=== PATIENT | male | born 1960 | race African-American/Black ===

== ENCOUNTER 2017-04-21 00:08 | Emergency (ER) | payer OTHER ==
[2017-04-21 00:18] LABS: Glucose,Whole Blood 81 mg/dL (75-99)
[2017-04-21] MEDS ORDERED: SODIUM CHLORIDE 0.9% 1,000 ML IV STA (01:05)
--- NOTE | 2017-04-21 01:09 | ED ---
General Adult HPI - General Chief complaint: Syncope Stated complaint: syncope Time Seen by Provider: 04/21/17 00:10 Source: patient, RN notes reviewed Mode of arrival: EMS - History of Present Illness Initial comments: This is a 56-year-old male who presents emergency department because he passed out. Patient states he was standing watching some people dancing at the festivities this evening. Patient states he started getting lightheaded and then he passed out states he was only out for a couple of seconds. Patient denied any headache patient denied any numbness or weakness. Patient denied any chest pain difficulty breathing or shortness of breath. Patient denied any abdominal pain patient denies any nausea or vomiting. Patient states currently he still feels a little weak but he is not having any pain and is in no distress. Patient denies having any heart condition patient denies any diabetes or high blood pressure. Patient states she does not have a family doctor. Patient denied any drinking today patient denies any drug use tonight. - Related Data Home Medications Medication Instructions Recorded Confirmed Cyclobenzaprine [Flexeril] 5 mg PO Q8HR 04/21/17 04/21/17 HYDROcodone/APAP 5-325MG [[place] 5] 5 mg PO Q8HR 04/21/17 04/21/17 Allergies Allergy/AdvReac Type Severity Reaction Status Date / Time Fish Containing Products Allergy Unknown Verified 04/21/17 00:18 [Fish] Review of Systems ROS Statement: Those systems with pertinent positive or pertinent negative responses have been documented in the HPI. ROS Other: All systems not noted in ROS Statement are negative. Past Medical History Additional Past Medical History / Comment(s): back pain History of Any Multi-Drug Resistant Organisms: None Reported Additional Past Surgical History / Comment(s): rigth shoulder surgery Past Psychological History: No Psychological Hx Reported Smoking Status: Current every day smoker Past Alcohol Use History: Occasional Past Drug Use History: Marijuana General Exam - General Exam Comments Initial Comments: GENERAL: Patient is well-developed and well-nourished. Patient is nontoxic and well- hydrated and is in no acute distress. ENT: Neck is soft and supple. No significant lymphadenopathy is noted. Oropharynx is clear. Moist mucous membranes. Neck has full range of motion without eliciting any pain. EYES The sclera were anicteric and conjunctiva were pink and moist. Extraocular movements were intact and pupils were equal round and reactive to light. Eyelids were unremarkable. PULMONARY: Unlabored respirations. Good breath sounds bilaterally. No audible rales rhonchi or wheezing was noted. CARDIOVASCULAR: There is a regular rate and rhythm without any murmurs gallops or rubs. ABDOMEN: Soft and nontender with normal bowel sounds. No palpable organomegaly was noted. There is no palpable pulsatile mass. SKIN: Skin is clear with no lesions or rashes and otherwise unremarkable. NEUROLOGIC: Patient is alert and oriented x3. Cranial nerves II through XII are grossly intact. Motor and sensory are also intact. Normal speech, volume and content. Symmetrical smile. MUSCULOSKELETAL: Normal extremities with adequate strength and full range of motion. No lower extremity swelling or edema. No calf tenderness. LYMPHATICS: No significant lymphadenopathy is noted PSYCHIATRIC: Normal psychiatric evaluation. Normal interpersonal interactions appears functionally intact in deals appropriately with others. No signs of depression. No signs of anxiety. Course Vital Signs 04/21/17 04/21/17 04/21/17 00:09 00:45 03:36 Temperature 97.0 F L Pulse Rate 68 72 86 Respiratory 18 16 14 Rate Blood Pressure 104/58 104/58 130/72 O2 Sat by Pulse 58 L 98 100 Oximetry Medical Decision Making - Medical Decision Making EKG shows a normal sinus rhythm at 67 bpm DE interval is on a 60 QRS is 66 QT interval 394 QTC is 416. Patient's EKG shows no ST segment elevation or depression or T wave normalities are noted. CT of the chest shows no PE. I suggest the patient stay in the hospital because he had a syncopal episode however he refused stating he wanted to go home. - Lab Data Result diagrams: 04/21/17 00:31 04/21/17 00:31 Lab Results 04/21/17 04/21/17 04/21/17 Range/Units 00:16 00:31 00:31 WBC 7.7 (3.8-10.6) k/uL RBC 4.28 L (4.30-5.90) m/uL Hgb 13.9 (13.0-17.5) gm/dL Hct 41.1 (39.0-53.0) % MCV 95.8 (80.0-100.0) fL MCH 32.5 (25.0-35.0) pg MCHC 33.9 (31.0-37.0) g/dL RDW 14.0 (11.5-15.5) % Plt Count 168 (150-450) k/uL Neutrophils % 48 % Lymphocytes % 40 % Monocytes % 6 % Eosinophils % 4 % Basophils % 1 % Neutrophils # 3.7 (1.3-7.7) k/uL Lymphocytes # 3.1 (1.0-4.8) k/uL Monocytes # 0.5 (0-1.0) k/uL Eosinophils # 0.3 (0-0.7) k/uL Basophils # 0.1 (0-0.2) k/uL PT (9.0-12.0) sec INR (<1.2) APTT (22.0-30.0) sec D-Dimer (<0.60) mg/L FEU Sodium (137-145) mmol/L Potassium (3.5-5.1) mmol/L Chloride (98-107) mmol/L Carbon Dioxide (22-30) mmol/L Anion Gap mmol/L BUN (9-20) mg/dL Creatinine (0.66-1.25) mg/dL Est GFR (MDRD) Af Amer (>60 ml/min/1.73 sqM) Est GFR (MDRD) Non-Af (>60 ml/min/1.73 sqM) Glucose (74-99) mg/dL POC Glucose (mg/dL) 81 (75-99) mg/dL POC Glu [employer] ID [place] Billy Calcium (8.4-10.2) mg/dL Magnesium (1.6-2.3) mg/dL Total Bilirubin (0.2-1.3) mg/dL AST (17-59) U/L ALT (21-72) U/L Alkaline Phosphatase (38-126) U/L Total Creatine Kinase 248 H (55-170) U/L CK-MB (CK-2) 1.8 (0.0-2.4) ng/mL CK-MB (CK-2) Rel Index 0.7 Troponin I <0.012 (0.000-0.034) ng/mL Total Protein (6.3-8.2) g/dL Albumin (3.5-5.0) g/dL 04/21/17 04/21/17 Range/Units 00:31 00:31 WBC (3.8-10.6) k/uL RBC (4.30-5.90) m/uL Hgb (13.0-17.5) gm/dL Hct (39.0-53.0) % MCV (80.0-100.0) fL MCH (25.0-35.0) pg MCHC (31.0-37.0) g/dL RDW (11.5-15.5) % Plt Count (150-450) k/uL Neutrophils % % Lymphocytes % % Monocytes % % Eosinophils % % Basophils % % Neutrophils # (1.3-7.7) k/uL Lymphocytes # (1.0-4.8) k/uL Monocytes # (0-1.0) k/uL Eosinophils # (0-0.7) k/uL Basophils # (0-0.2) k/uL PT 10.2 (9.0-12.0) sec INR 1.0 (<1.2) APTT 19.1 L (22.0-30.0) sec D-Dimer 4.21 H (<0.60) mg/L FEU Sodium 145 (137-145) mmol/L Potassium 4.0 (3.5-5.1) mmol/L Chloride 108 H (98-107) mmol/L Carbon Dioxide 25 (22-30) mmol/L Anion Gap 12 mmol/L BUN 16 (9-20) mg/dL Creatinine 1.20 (0.66-1.25) mg/dL Est GFR (MDRD) Af Amer >60 (>60 ml/min/1.73 sqM) Est GFR (MDRD) Non-Af >60 (>60 ml/min/1.73 sqM) Glucose 77 (74-99) mg/dL POC Glucose (mg/dL) (75-99) mg/dL POC Glu [employer] Mechanical Engineer ID Calcium 9.2 (8.4-10.2) mg/dL Magnesium 2.1 (1.6-2.3) mg/dL Total Bilirubin 0.6 (0.2-1.3) mg/dL AST 25 (17-59) U/L ALT 29 (21-72) U/L Alkaline Phosphatase 73 (38-126) U/L Total Creatine Kinase (55-170) U/L CK-MB (CK-2) (0.0-2.4) ng/mL CK-MB (CK-2) Rel Index Troponin I (0.000-0.034) ng/mL Total Protein 7.0 (6.3-8.2) g/dL Albumin 4.2 (3.5-5.0) g/dL Disposition Clinical Impression: Syncope and collapse Disposition: Left Against Medical Advice Referrals: None,Stated [Primary Care Provider] - 1-2 days Time of Disposition: 03:51
[2017-04-21 01:19] LABS: Basophils # (A) 0.1 k/uL (0-0.2); Basophils % (A) 1 %; CH 31.5; Eosinophils # (A) 0.3 k/uL (0-0.7); Eosinophils % (A) 4 %; HCT 41.1 % (39.0-53.0); HDW 2.21; HGB 13.9 gm/dL (13.0-17.5); Luc # (Auto) 0.14; Luc % (Auto) 2; Lymphocytes # (A) 3.1 k/uL (1.0-4.8); Lymphocytes % (A) 40 %; MCH 32.5 pg (25.0-35.0); MCHC 33.9 g/dL (31.0-37.0); MCV 95.8 fL (80.0-100.0); Mean Platelet Volume 8.6; Monocytes # (A) 0.5 k/uL (0-1.0); Monocytes % (A) 6 %; Neutrophils # (A) 3.7 k/uL (1.3-7.7); Neutrophils % (A) 48 %; RBC 4.28 m/uL (4.30-5.90); WBC 7.7 k/uL (3.8-10.6); WBC (Perox) 7.61
[2017-04-21 01:27] LABS: ALT 29 U/L (21-72); AST 25 U/L (17-59); Alkaline Phosphatase 73 U/L (38-126); Anion Gap 12 mmol/L; Blood Urea Nitrogen 16 mg/dL (9-20); Calcium 9.2 mg/dL (8.4-10.2); Carbon Dioxide 25 mmol/L (22-30); Chloride 108 mmol/L (98-107); Glucose 77 mg/dL (74-99); Magnesium 2.1 mg/dL (1.6-2.3); Non-African American GFR(MDRD) >60 (>60 ml/min/1.73 sqM); Sodium 145 mmol/L (137-145); Total Bilirubin 0.6 mg/dL (0.2-1.3)
[2017-04-21 01:44] LABS: Prothrombin Time 10.2 sec (9.0-12.0)
[2017-04-21 01:46] LABS: Creatine Kinase 248 U/L (55-170)
[2017-04-21 01:49] LABS: Partial Thromboplastin Time 19.1 sec (22.0-30.0)
--- NOTE | 2017-04-21 01:52 | XR ---
EXAM: XR Chest, 2 Views CLINICAL HISTORY: Chest pain TECHNIQUE: Frontal and lateral views of the chest. COMPARISON: No relevant prior studies available. FINDINGS: Lungs: Unremarkable. No consolidation. Pleural space: Unremarkable. No pneumothorax. Heart: Unremarkable. No cardiomegaly. Mediastinum: Unremarkable. Bones/joints: Degenerative changes of the right shoulder and acromioclavicular joints. IMPRESSION: No acute findings.
[2017-04-21 01:59] LABS: Creatine Kinase MB 1.8 ng/mL (0.0-2.4); Troponin I <0.012 ng/mL (0.000-0.034)
[2017-04-21] MEDS ORDERED: RX INFO: IV CONTRAST WAS GIVEN 1 EACH MISC MISCELLANE PRN (02:13)
--- NOTE | 2017-04-21 03:30 | CT ---
EXAM: CT Angiography Chest With Intravenous Contrast CLINICAL HISTORY: Reason: Pain TECHNIQUE: Axial computed tomographic angiography images of the chest with intravenous contrast using pulmonary embolism protocol. CTDI is 3.0, 52. 50, 3.1 mGy and DLP is 133.30 mGy-cm. This CT exam was performed using one or more of the following dose reduction techniques: automated exposure control, adjustment of the mA and/or kV according to patient size, and/or use of iterative reconstruction technique. MIP reconstructed images were created and reviewed. COMPARISON: No relevant prior studies available. FINDINGS: Pulmonary arteries: No evidence of pulmonary embolus. Aorta: No acute findings. No thoracic aortic aneurysm. Lungs: Centrilobular and paraseptal emphysema. Mild cylindrical bronchiectasis with mucous stasis noted left lower lobe. Mild bronchial wall thickening within the central lungs which may represent bronchitis. Presumed dependent atelectasis. 5 mm right middle lobe nodule (4-110). Pleural space: Unremarkable. No significant effusion. No pneumothorax. Heart: Unremarkable. No cardiomegaly. No significant pericardial effusion. No evidence of RV dysfunction. Bones/joints: Degenerative changes of the right shoulder. No acute fracture. No dislocation. Soft tissues: Unremarkable. Lymph nodes: Unremarkable. No enlarged lymph nodes. IMPRESSION: 1. No evidence of pulmonary embolus. 2. Centrilobular and paraseptal emphysema. 3. Mild cylindrical bronchiectasis with mucous stasis noted left lower lobe. Mild bronchial wall thickening within the central lungs which may represent bronchitis.
[2017-04-21 04:16] VITALS: BP 107/59; PULSE 78; RESP 18; TEMP 97.7
== END 2017-04-21 04:16 | disposition left against medical advice (07) ==
LOC: EC 00:08
DX: R55 Syncope and collapse (principal); R42 Dizziness and giddiness; R53.1 Weakness; F17.200 Nicotine dependence, unspecified, uncomplicated; Z79.891 Long term (current) use of opiate analgesic; Z79.899 Other long term (current) drug therapy; Z91.013 Allergy to seafood; Z87.39 Personal history of other diseases of the musculoskeletal system and connective tissue
CPT/HCPCS: 99285; 96360; 96361 ×2; 36415; 93005; 85379; 80053; 82550; 82553; 83735; 84484; 85025; 85610; 85730; 71020; 71275; Q9967

== ENCOUNTER 2018-05-10 08:01 | Emergency (ER) | payer SELFPAY ==
[2018-05-10 08:07] VITALS: BP 117/75; PULSE 73; RESP 18; TEMP 98.7
--- NOTE | 2018-05-10 08:19 | ED ---
Lower Extremity Injury HPI - General Chief Complaint: Extremity Injury, Lower Stated Complaint: Swollen Toe Time Seen by Provider: 05/10/18 08:12 Source: patient, RN notes reviewed, old records reviewed Mode of arrival: ambulatory Limitations: no limitations - History of Present Illness Initial Comments: this is a 49-year-old male presents emergency department today with chief complaint of swelling to the distal aspect of his left second toe. Patient ports yesterday when he left for work in the afternoon he'll he plays soccer and he was having severe pain. He does not remember stepping on anything or hitting it to cause any trauma. Patient states that when he put the shoe on he was unable to tolerate the pain. Patient states that he has some swelling over the plantar aspect of the toes well. Patient states that he's never had a history of gout. He questions if it could've been a small spider bites or mosquito bite causing the pain. Patient states that he has no pain in the great toe. - Related Data Previous Rx's Medication Instructions Recorded Ibuprofen [Motrin] 600 mg PO Q6HR PRN #20 tab 09/26/17 Orphenadrine [Norflex] 100 mg PO Q12H #10 tablet.er 09/26/17 Cephalexin [Keflex] 500 mg PO Q6HR #28 cap 05/10/18 Indomethacin [Indocin] 50 mg PO TID #20 capsule 05/10/18 Allergies Allergy/AdvReac Type Severity Reaction Status Date / Time Fish Containing Products Allergy Unknown Verified 05/10/18 08:07 [Fish] Review of Systems ROS Statement: Those systems with pertinent positive or pertinent negative responses have been documented in the HPI. ROS Other: All systems not noted in ROS Statement are negative. Past Medical History Additional Past Medical History / Comment(s): back pain History of Any Multi-Drug Resistant Organisms: None Reported Additional Past Surgical History / Comment(s): rigth shoulder surgery Past Psychological History: No Psychological Hx Reported Smoking Status: Current every day smoker Past Alcohol Use History: Occasional Past Drug Use History: Marijuana General Exam - General Exam Comments Initial Comments: 49-year-old male. Alert and oriented. No significant distress. Limitations: no limitations General appearance: alert, in no apparent distress Head exam: Present: atraumatic, normocephalic, normal inspection Eye exam: Present: normal appearance, PERRL, EOMI. Absent: scleral icterus, conjunctival injection, periorbital swelling ENT exam: Present: normal exam, mucous membranes moist Neck exam: Present: normal inspection. Absent: tenderness, meningismus, lymphadenopathy Respiratory exam: Present: normal lung sounds bilaterally. Absent: respiratory distress, wheezes, rales, rhonchi, stridor Cardiovascular Exam: Present: regular rate, normal rhythm, normal heart sounds. Absent: systolic murmur, diastolic murmur, rubs, gallop, clicks GI/Abdominal exam: Present: soft, normal bowel sounds. Absent: distended, tenderness, guarding, rebound, rigid Extremities exam: Present: normal inspection, full ROM, normal capillary refill. Absent: tenderness, pedal edema, joint swelling, calf tenderness Left Ankle exam: Present: normal inspection, full ROM Foot/Toe exam: Present: tenderness (over distal left 2nd DIP ), swelling, erythema (over distal left 2nd DIP). Absent: normal inspection, abrasion, laceration, ecchymosis, deformity, crepitus, dislocation, amputation Neurovascular tendon exam: Present: no vascular compromise Gait: observed and normal Back exam: Present: normal inspection Neurological exam: Present: alert, oriented X3, CN II-XII intact Psychiatric exam: Present: normal affect, normal mood Course Vital Signs 05/10/18 08:05 Temperature 98.7 F Pulse Rate 73 Respiratory 18 Rate Blood Pressure 117/75 O2 Sat by Pulse 99 Oximetry Medical Decision Making - Medical Decision Making [id number] male presents with onset of swelling and pain to the distal aspect of the left second toe. Questionable area of cellulitis versus gout at this time. He does not know if he stepped on anything or was bit by any insect. Patient does have swelling. No pain with range of motion of the toe. Patient x-ray shows evidence of soft tissue. No evidence of radiopaque foreign body or osseous myelitis. At this time I'll treat the Patient work out with indomethacin. I also discussed was covered for any kind of cellulitis with some antibiotics. I discussed return parameters including worsening swelling or pain. Patient understands treatment plan will comply. Return parameters were discussed. - Radiology Data Radiology results: report reviewed X-ray shows some focal soft tissue swelling of the distal aspect of the second toe left foot without radiopaque foreign body fracture-dislocation or suspicious osseous lesion. Disposition Clinical Impression: Pain and swelling of toe of left foot Disposition: HOME SELF-CARE Condition: Good Instructions: Gout (ED), Cellulitis (ED) Additional Instructions: Patient advised to keep the toe up and elevated. Take the medication as prescribed. If the area of redness or swelling worsens return to the emergency department. Prescriptions: Cephalexin [Keflex] 500 mg PO Q6HR #28 cap Indomethacin [Indocin] 50 mg PO TID #20 capsule Is patient prescribed a controlled substance at d/c from ED?: No Referrals: Nonstaff,Physician [Primary Care Provider] - 1-2 days Chhaya Flores MD [STAFF PHYSICIAN] - 1-2 days Time of Disposition: 09:04
--- NOTE | 2018-05-10 08:42 | XR ---
EXAMINATION TYPE: XR toes LT DATE OF EXAM: 05/10/2018 COMPARISON: NONE HISTORY: Pain and swelling of the second toe with no known injury. TECHNIQUE: 3 views of left second toe were obtained. FINDINGS: There is no evidence of acute fracture or dislocation of the second toe of the left foot. N o suspicious osseous lesion. Soft tissue swelling is seen distally. No radiopaque foreign body. IMPRESSION: Focal soft tissue swelling of the distal aspect of the second toe of the left foot withou t radiopaque foreign body, fracture/dislocation, or suspicious osseous lesion.
[2018-05-10] MEDS ORDERED: INDOMETHACIN 25 MG CAP PO STA (09:04)
== END 2018-05-10 09:33 | disposition home or self-care (01) ==
LOC: EC 08:01
DX: M79.675 Pain in left toe(s) (principal); M79.89 Other specified soft tissue disorders; F17.200 Nicotine dependence, unspecified, uncomplicated; Z91.013 Allergy to seafood; Y93.66 Activity, soccer
CPT/HCPCS: 99284

== ENCOUNTER 2018-05-24 08:52 | Emergency (ER) | payer SELFPAY ==
[2018-05-24 09:11] VITALS: RESP 18; TEMP 97.8
[2018-05-24] MEDS ORDERED: PANTOPRAZOLE 40 MG/10 ML VIAL IVP STA (09:41)
[2018-05-24] MEDS ORDERED: SODIUM CHLORIDE 0.9% 1,000 ML IV STA (09:41)
--- NOTE | 2018-05-24 09:43 | ED ---
Abdominal Pain HPI - General Chief Complaint: Abdominal Pain Stated Complaint: Flank pain/Dizzy Time Seen by Provider: 05/24/18 09:25 Source: patient, RN notes reviewed, old records reviewed Mode of arrival: ambulatory Limitations: no limitations - History of Present Illness Initial Comments: 49-year-old abscess returns or tingling of left-sided flank pain for the past 4 days. Reports he thinks initially was because he changed positions at work and he did not want moving. He reports today he was washing his car and felt a pain on the left eye is back. He then subsequently had a syncopal episode related to pain. Patient is sent no urinary symptoms. He does state that he is concerned for sinus series. He reports that he's had no fevers or chills. No coughing shortness of breath. - Related Data Home Medications Medication Instructions Recorded Confirmed Naproxen [Naprosyn] 250 mg PO BID PRN 05/24/18 05/24/18 Orphenadrine [Norflex] 100 mg PO Q12H PRN 05/24/18 05/24/18 Previous Rx's Medication Instructions Recorded Cyclobenzaprine [Flexeril] 10 mg PO TID #12 tab 05/24/18 traMADol HCL [Ultram] 50 mg PO Q6HR PRN 3 Days #12 tab 05/24/18 Allergies Allergy/AdvReac Type Severity Reaction Status Date / Time Fish Containing Products Allergy Unknown Verified 05/24/18 09:34 [Fish] Review of Systems ROS Statement: Those systems with pertinent positive or pertinent negative responses have been documented in the HPI. ROS Other: All systems not noted in ROS Statement are negative. Past Medical History Additional Past Medical History / Comment(s): back pain History of Any Multi-Drug Resistant Organisms: None Reported Additional Past Surgical History / Comment(s): right shoulder surgery Past Psychological History: No Psychological Hx Reported Smoking Status: Current every day smoker Past Alcohol Use History: Occasional Past Drug Use History: Marijuana General Exam - General Exam Comments Initial Comments: This is a 57-year-old male. Alert and oriented. No acute distress. Limitations: no limitations General appearance: alert, in no apparent distress Head exam: Present: atraumatic, normocephalic, normal inspection Eye exam: Present: normal appearance, PERRL, EOMI. Absent: scleral icterus, conjunctival injection, periorbital swelling ENT exam: Present: normal exam, mucous membranes moist Neck exam: Present: normal inspection. Absent: tenderness, meningismus, lymphadenopathy Respiratory exam: Present: normal lung sounds bilaterally. Absent: respiratory distress, wheezes, rales, rhonchi, stridor Cardiovascular Exam: Present: regular rate, normal rhythm, normal heart sounds. Absent: systolic murmur, diastolic murmur, rubs, gallop, clicks GI/Abdominal exam: Present: soft, normal bowel sounds. Absent: distended, tenderness, guarding, rebound, rigid Extremities exam: Present: normal inspection, full ROM, normal capillary refill. Absent: tenderness, pedal edema, joint swelling, calf tenderness Back exam: Present: normal inspection Neurological exam: Present: alert, oriented X3, CN II-XII intact Course Vital Signs 05/24/18 05/24/18 09:07 12:38 Temperature 97.8 F 97.8 F Pulse Rate 64 56 L Respiratory 18 18 Rate Blood Pressure 117/72 108/74 O2 Sat by Pulse 99 99 Oximetry Medical Decision Making - Medical Decision Making 57-year-old male presents emergency department today with left-sided flank pain , dizziness and questionable syncopal episode. At this time patient's labwork was reviewed and unremarkable. EKG shows sinus rhythm. No acute changes. Chest x-ray and KUB are normal. He does have some left-sided point tenderness. Urinalysis negative for any signs of infection or blood at this time.PAtient givne IV fluids and toradol. PAtient was found resting comfortably and in no distress. Patient informed of normal labs and that patient flankpain is likely due to muscle spasm. - Lab Data Result diagrams: 05/24/18 09:45 05/24/18 09:45 Lab Results 05/24/18 05/24/18 05/24/18 Range/Units 09:45 09:45 09:45 WBC 5.3 (3.8-10.6) k/uL RBC 4.69 (4.30-5.90) m/uL Hgb 13.6 (13.0-17.5) gm/dL Hct 43.6 (39.0-53.0) % MCV 93.1 (80.0-100.0) fL MCH 29.0 (25.0-35.0) pg MCHC 31.1 (31.0-37.0) g/dL RDW 12.9 (11.5-15.5) % Plt Count 164 (150-450) k/uL Neutrophils % 38 % Lymphocytes % 46 % Monocytes % 8 % Eosinophils % 4 % Basophils % 1 % Neutrophils # 2.0 (1.3-7.7) k/uL Lymphocytes # 2.5 (1.0-4.8) k/uL Monocytes # 0.4 (0-1.0) k/uL Eosinophils # 0.2 (0-0.7) k/uL Basophils # 0.0 (0-0.2) k/uL PT (9.0-12.0) sec INR (<1.2) APTT (22.0-30.0) sec Sodium 140 (137-145) mmol/L Potassium 4.8 (3.5-5.1) mmol/L Chloride 106 (98-107) mmol/L Carbon Dioxide 26 (22-30) mmol/L Anion Gap 8 mmol/L BUN 15 (9-20) mg/dL Creatinine 1.00 (0.66-1.25) mg/dL Est GFR (CKD-EPI)AfAm >90 (>60 ml/min/1.73 sqM) Est GFR (CKD-EPI)NonAf 83 (>60 ml/min/1.73 sqM) Glucose 85 (74-99) mg/dL Plasma Lactic Acid Oren (0.7-2.0) mmol/L Calcium 9.2 (8.4-10.2) mg/dL Total Bilirubin 0.5 (0.2-1.3) mg/dL AST 32 (17-59) U/L ALT 22 (21-72) U/L Alkaline Phosphatase 63 (38-126) U/L Troponin I (0.000-0.034) ng/mL Total Protein 6.8 (6.3-8.2) g/dL Albumin 3.8 (3.5-5.0) g/dL Amylase 85 (30-110) U/L Lipase 129 (23-300) U/L Urine Color Yellow Urine Appearance Clear (Clear) Urine pH 6.0 (5.0-8.0) Ur Specific [place] 1.020 (1.001-1.035) Urine Protein Negative (Negative) Urine Glucose (UA) Negative (Negative) Urine Ketones Negative (Negative) Urine Blood Negative (Negative) Urine Nitrite Negative (Negative) Urine Bilirubin Negative (Negative) Urine Urobilinogen 2.0 (<2.0) mg/dL Ur Leukocyte Esterase Negative (Negative) Chlamydia Source Chlamydia DNA (PCR) (Neg,Equiv) N. gonorrhoeae Source N.gonorrhoeae DNA Probe (Neg,Equiv) 05/24/18 05/24/18 05/24/18 Range/Units 09:45 09:45 10:48 WBC (3.8-10.6) k/uL RBC (4.30-5.90) m/uL Hgb (13.0-17.5) gm/dL Hct (39.0-53.0) % MCV (80.0-100.0) fL MCH (25.0-35.0) pg MCHC (31.0-37.0) g/dL RDW (11.5-15.5) % Plt Count (150-450) k/uL Neutrophils % % Lymphocytes % % Monocytes % % Eosinophils % % Basophils % % Neutrophils # (1.3-7.7) k/uL Lymphocytes # (1.0-4.8) k/uL Monocytes # (0-1.0) k/uL Eosinophils # (0-0.7) k/uL Basophils # (0-0.2) k/uL PT 10.6 (9.0-12.0) sec INR 1.1 (<1.2) APTT 23.7 (22.0-30.0) sec Sodium (137-145) mmol/L Potassium (3.5-5.1) mmol/L Chloride (98-107) mmol/L Carbon Dioxide (22-30) mmol/L Anion Gap mmol/L BUN (9-20) mg/dL Creatinine (0.66-1.25) mg/dL Est GFR (CKD-EPI)AfAm (>60 ml/min/1.73 sqM) Est GFR (CKD-EPI)NonAf (>60 ml/min/1.73 sqM) Glucose (74-99) mg/dL Plasma Lactic Acid Oren (0.7-2.0) mmol/L Calcium (8.4-10.2) mg/dL Total Bilirubin (0.2-1.3) mg/dL AST (17-59) U/L ALT (21-72) U/L Alkaline Phosphatase (38-126) U/L Troponin I (0.000-0.034) ng/mL Total Protein (6.3-8.2) g/dL Albumin (3.5-5.0) g/dL Amylase (30-110) U/L Lipase (23-300) U/L Urine Color Urine Appearance (Clear) Urine pH (5.0-8.0) Ur Specific [place] (1.001-1.035) Urine Protein (Negative) Urine Glucose (UA) (Negative) Urine Ketones (Negative) Urine Blood (Negative) Urine Nitrite (Negative) Urine Bilirubin (Negative) Urine Urobilinogen (<2.0) mg/dL Ur Leukocyte Esterase (Negative) Chlamydia Source Urine Chlamydia DNA (PCR) Negative (Neg,Equiv) N. gonorrhoeae Source Urine N.gonorrhoeae DNA Probe Negative (Neg,Equiv) 05/24/18 05/24/18 Range/Units 10:48 10:48 WBC (3.8-10.6) k/uL RBC (4.30-5.90) m/uL Hgb (13.0-17.5) gm/dL Hct (39.0-53.0) % MCV (80.0-100.0) fL MCH (25.0-35.0) pg MCHC (31.0-37.0) g/dL RDW (11.5-15.5) % Plt Count (150-450) k/uL Neutrophils % % Lymphocytes % % Monocytes % % Eosinophils % % Basophils % % Neutrophils # (1.3-7.7) k/uL Lymphocytes # (1.0-4.8) k/uL Monocytes # (0-1.0) k/uL Eosinophils # (0-0.7) k/uL Basophils # (0-0.2) k/uL PT (9.0-12.0) sec INR (<1.2) APTT (22.0-30.0) sec Sodium (137-145) mmol/L Potassium (3.5-5.1) mmol/L Chloride (98-107) mmol/L Carbon Dioxide (22-30) mmol/L Anion Gap mmol/L BUN (9-20) mg/dL Creatinine (0.66-1.25) mg/dL Est GFR (CKD-EPI)AfAm (>60 ml/min/1.73 sqM) Est GFR (CKD-EPI)NonAf (>60 ml/min/1.73 sqM) Glucose (74-99) mg/dL Plasma Lactic Acid Oren 1.0 (0.7-2.0) mmol/L Calcium (8.4-10.2) mg/dL Total Bilirubin (0.2-1.3) mg/dL AST (17-59) U/L ALT (21-72) U/L Alkaline Phosphatase (38-126) U/L Troponin I <0.012 (0.000-0.034) ng/mL Total Protein (6.3-8.2) g/dL Albumin (3.5-5.0) g/dL Amylase (30-110) U/L Lipase (23-300) U/L Urine Color Urine Appearance (Clear) Urine pH (5.0-8.0) Ur Specific [place] (1.001-1.035) Urine Protein (Negative) Urine Glucose (UA) (Negative) Urine Ketones (Negative) Urine Blood (Negative) Urine Nitrite (Negative) Urine Bilirubin (Negative) Urine Urobilinogen (<2.0) mg/dL Ur Leukocyte Esterase (Negative) Chlamydia Source Chlamydia DNA (PCR) (Neg,Equiv) N. gonorrhoeae Source N.gonorrhoeae DNA Probe (Neg,Equiv) - Radiology Data Radiology results: report reviewed Chest x-rays negative for any acute disease. Overall on instructed bowel gas pattern. Disposition Clinical Impression: Left flank pain Disposition: HOME SELF-CARE Condition: Good Instructions: Abdominal Pain (ED) Additional Instructions: Patient is follow-up with primary care physician. Return to emergency department if any alarming signs or symptoms occur. Prescriptions: Cyclobenzaprine [Flexeril] 10 mg PO TID #12 tab traMADol HCL [Ultram] 50 mg PO Q6HR PRN 3 Days #12 tab PRN Reason: Pain Is patient prescribed a controlled substance at d/c from ED?: No Referrals: None,Stated [Primary Care Provider] - 1-2 days Time of Disposition: 12:27
[2018-05-24 10:22] LABS: Appearance,Urine Clear (Clear); Bilirubin,Urine Negative (Negative); Blood,Urine Negative (Negative); Color,Urine Yellow; Glucose,Urine (UA) Negative (Negative); Ketones,Urine Negative (Negative); Leukocyte Esterase,Urine Negative (Negative); Nitrite,Urine Negative (Negative); Protein,Urine Negative (Negative)
[2018-05-24 11:17] LABS: Basophils % (A) 1 %; Eosinophils # (A) 0.2 k/uL (0-0.7); Eosinophils % (A) 4 %; HCT 43.6 % (39.0-53.0); HGB 13.6 gm/dL (13.0-17.5); Lymphocytes # (A) 2.5 k/uL (1.0-4.8); Lymphocytes % (A) 46 %; MCHC 31.1 g/dL (31.0-37.0); MCV 93.1 fL (80.0-100.0); Mean Platelet Volume 9.1; Monocytes # (A) 0.4 k/uL (0-1.0); Monocytes % (A) 8 %; Neutrophils % (A) 38 %; Platelet Count 164 k/uL (150-450); RBC 4.69 m/uL (4.30-5.90); RDW 12.9 % (11.5-15.5); WBC 5.3 k/uL (3.8-10.6)
--- NOTE | 2018-05-24 11:20 | XR ---
EXAMINATION TYPE: XR chest 2V DATE OF EXAM: 05/24/2018 COMPARISON: 09/26/2017 HISTORY: Shortness of breath TECHNIQUE: Frontal and lateral views of the chest are obtained. FINDINGS: Scattered senescent parenchymal changes noted. Hyperinflation compatible with COPD. No evidence for infiltrate. No evidence for atelectasis. Heart size is stable. Mediastinal structures are stable and grossly unremarkable. No evidence for hilar prominence. Degenerative changes dorsal spine. IMPRESSION: 1. No evidence for acute pulmonary disease.
--- NOTE | 2018-05-24 11:21 | XR ---
EXAMINATION TYPE: XR KUB DATE OF EXAM: 05/24/2018 COMPARISON: NONE HISTORY: Pain TECHNIQUE: Single supine KUB image of the abdomen is obtained FINDINGS: Small bowel demonstrates no evidence for dilatation or air fluid levels. Gas and fecal material is seen in non-distended colon. No convincing evidence for pneumoperitoneum. No unusual calcifications. The lung bases are clear. The osseous structures are intact. IMPRESSION: 1. Overall nonobstructive bowel gas pattern.
[2018-05-24 11:23] LABS: ALT 22 U/L (21-72); AST 32 U/L (17-59); Albumin 3.8 g/dL (3.5-5.0); Alkaline Phosphatase 63 U/L (38-126); Amylase 85 U/L (30-110); Anion Gap 8 mmol/L; Blood Urea Nitrogen 15 mg/dL (9-20); Calcium 9.2 mg/dL (8.4-10.2); Carbon Dioxide 26 mmol/L (22-30); Chloride 106 mmol/L (98-107); Glucose 85 mg/dL (74-99); Lipase 129 U/L (23-300); Sodium 140 mmol/L (137-145); Total Bilirubin 0.5 mg/dL (0.2-1.3); Total Protein 6.8 g/dL (6.3-8.2)
[2018-05-24 11:25] LABS: INR 1.1 (<1.2); Partial Thromboplastin Time 23.7 sec (22.0-30.0); Prothrombin Time 10.6 sec (9.0-12.0)
[2018-05-24 11:27] LABS: Potassium 4.8 mmol/L (3.5-5.1)
[2018-05-24 12:39] VITALS: BP 108/74; PULSE 56
[2018-05-25 14:43] LABS: N. gonorrhoeae,PCR Negative (Neg,Equiv); Neisseria Source Urine
[2018-05-25 14:45] LABS: C. trachomatis,PCR Negative (Neg,Equiv); Chlamydia trachomatis Source Urine
== END 2018-05-24 12:42 | disposition home or self-care (01) ==
LOC: EC 08:52
DX: R10.9 Unspecified abdominal pain (principal); R20.2 Paresthesia of skin; R55 Syncope and collapse; F17.200 Nicotine dependence, unspecified, uncomplicated; Z91.013 Allergy to seafood
CPT/HCPCS: 36415; 93005; 80053; 82150; 83605; 83690; 84484; 85025; 85610; 85730; 81003; 87040; 87491; 87591; 71046; 74018; 99284; 96374; 96361; C9113

== ENCOUNTER 2018-07-13 13:03 | Emergency (ER) | payer OTHER ==
[2018-07-13 13:27] VITALS: BP 115/61; PULSE 74; RESP 18; TEMP 98.2
--- NOTE | 2018-07-13 13:43 | ED ---
General Adult HPI - General Chief complaint: Back Pain/Injury Stated complaint: Hand & back pain Time Seen by Provider: 07/13/18 13:30 Source: patient, RN notes reviewed Mode of arrival: ambulatory Limitations: no limitations - History of Present Illness Initial comments: This a 57-year-old male presents emergency Department chief complaint of low back pain, right hand pain. Patient states to chronic back issues but states he recently just started working and said some increased issues. He states he has a burning sensation to his left thigh region. Denies any scrotal pain or paresthesias. Patient denies any bowel, bladder incontinence or retention. He has no abdominal pains time. He states the pain is better when he is laying flat and worse with movement. Denies any weakness to his lower extremities. Patient states that he's had right hand swelling after using some symptoms at work. He states is very repetitious. Patient states his has pain on the dorsal aspect of his right hand. He is [id number]. - Related Data Home Medications Medication Instructions Recorded Confirmed Naproxen [Naprosyn] 250 mg PO BID PRN 05/24/18 05/24/18 Orphenadrine [Norflex] 100 mg PO Q12H PRN 05/24/18 05/24/18 Previous Rx's Medication Instructions Recorded Cyclobenzaprine [Flexeril] 10 mg PO TID #12 tab 05/24/18 traMADol HCL [Ultram] 50 mg PO Q6HR PRN 3 Days #12 tab 05/24/18 Cyclobenzaprine [Flexeril] 10 mg PO TID PRN #15 tab 07/13/18 Ibuprofen [Motrin] 600 mg PO Q8HR PRN #30 tab 07/13/18 Allergies Allergy/AdvReac Type Severity Reaction Status Date / Time Fish Containing Products Allergy Anaphylaxis Verified 07/13/18 13:58 [Fish] Review of Systems ROS Statement: Those systems with pertinent positive or pertinent negative responses have been documented in the HPI. ROS Other: All systems not noted in ROS Statement are negative. Past Medical History Additional Past Medical History / Comment(s): back pain History of Any Multi-Drug Resistant Organisms: None Reported Additional Past Surgical History / Comment(s): right shoulder surgery Past Psychological History: No Psychological Hx Reported Smoking Status: Current every day smoker Past Alcohol Use History: Occasional Past Drug Use History: Marijuana General Exam Limitations: no limitations General appearance: alert, in no apparent distress Head exam: Present: atraumatic, normocephalic, normal inspection Respiratory exam: Present: normal lung sounds bilaterally. Absent: respiratory distress, wheezes, rales, rhonchi, stridor Cardiovascular Exam: Present: regular rate, normal rhythm, normal heart sounds. Absent: systolic murmur, diastolic murmur, rubs, gallop, clicks GI/Abdominal exam: Present: soft, normal bowel sounds. Absent: distended, tenderness, guarding, rebound, rigid Back exam: Present: full ROM, tenderness (Mild discomfort with range of motion) , muscle spasm, paraspinal tenderness (Mild left lumbar). Absent: CVA tenderness (R), CVA tenderness (L), vertebral tenderness Neurological exam: Present: alert, oriented X3, CN II-XII intact, reflexes normal. Absent: motor sensory deficit Skin exam: Present: warm, dry, intact, normal color. Absent: rash Course Vital Signs 07/13/18 13:24 Temperature 98.2 F Pulse Rate 74 Respiratory 18 Rate Blood Pressure 115/61 O2 Sat by Pulse 97 Oximetry Medical Decision Making - Medical Decision Making 57-year-old male presents emergency Department for low back, right hand pain. Patient's right hand pain related to tendinitis from overuse or new job. Patient has swelling to the dorsalis hand x-rays are obtained no acute fracture or acute abnormality. Patient also has exacerbation of his chronic back issues. Patient's having lumbar Her symptoms down his left leg he has no red flag symptoms including bowel bladder incontinence or retention. Patient has no rash is strength of the lower extremities. Patient we given Flexeril, ibuprofen at this time. Patient will follow-up with his PCP and return for any worsening symptoms. Disposition Clinical Impression: Acute lumbar radiculopathy, Strain of lumbar region, Right hand tendonitis Disposition: HOME SELF-CARE Condition: Stable Instructions: Acute Low Back Pain (ED) Additional Instructions: Please return to the Emergency Department if symptoms worsen or any other concerns. Prescriptions: Cyclobenzaprine [Flexeril] 10 mg PO TID PRN #15 tab PRN Reason: Muscle Spasm Ibuprofen [Motrin] 600 mg PO Q8HR PRN #30 tab PRN Reason: Pain Is patient prescribed a controlled substance at d/c from ED?: No Referrals: Gerald Toledo MD [REFERRING] - 1-2 days Time of Disposition: 14:55
[2018-07-13] MEDS ORDERED: ACET/COD 300 MG/30 MG STARTER PACK 6 TAB BTL PO STA (14:54)
--- NOTE | 2018-07-13 14:59 | XR ---
EXAMINATION TYPE: XR hand complete RT DATE OF EXAM: 07/13/2018 CLINICAL HISTORY: Pain and swelling in right hand after injury. TECHNIQUE: Frontal, lateral and oblique images of the right hand are obtained. COMPARISON: None. FINDINGS: There is no acute fracture/dislocation evident in the right hand. Moderate soft tissue swe lling of third DIP joint is present. There is suboptimal evaluation due to incomplete extension. Susp ect mild narrowing third PIP and DIP joints. IMPRESSION: There is no acute fracture or dislocation in the right hand.
== END 2018-07-13 15:09 | disposition home or self-care (01) ==
LOC: EC 13:03
DX: M54.16 Radiculopathy, lumbar region (principal); S39.012A Strain of muscle, fascia and tendon of lower back, initial encounter; M77.9 Enthesopathy, unspecified; F17.200 Nicotine dependence, unspecified, uncomplicated; Z91.013 Allergy to seafood; X50.9XXA Other and unspecified overexertion or strenuous movements or postures, initial encounter; Y92.69 Other specified industrial and construction area as the place of occurrence of the external cause; Y99.0 Civilian activity done for income or pay
CPT/HCPCS: 99283

== ENCOUNTER 2018-08-27 06:45 | Emergency (ER) | payer OTHER ==
[2018-08-27 06:50] VITALS: BP 109/75; PULSE 93; RESP 18; TEMP 98.8
--- NOTE | 2018-08-27 07:37 | ED ---
General Adult HPI - General Chief complaint: Skin/Abscess/Foreign Body Stated complaint: abscess Time Seen by Provider: 08/27/18 07:11 Source: patient, RN notes reviewed Mode of arrival: ambulatory Limitations: no limitations - History of Present Illness Initial comments: Patient 57-year-old male presenting to the emergency room today with a chief complaint of facial abscess to the right side 5 days. He states that 5 days ago he shaved. He states that at night he noticed small bump which is not large. States more painful. Please follow up yesterday and was prescribed an antibiotic. Patient states she's taken a total of 2 doses unsure the name of the antibiotic. He denies any other complaints or symptoms. Patient denies any recent fever, chills, shortness of breath, chest pain, back pain, abdominal pain , nausea or vomiting, numbness or tingling, dysuria or hematuria, constipation or diarrhea, headaches or visual changes, or any other complaints. - Related Data Home Medications Medication Instructions Recorded Confirmed Naproxen [Naprosyn] 250 mg PO BID PRN 05/24/18 05/24/18 Orphenadrine [Norflex] 100 mg PO Q12H PRN 05/24/18 05/24/18 Previous Rx's Medication Instructions Recorded Cyclobenzaprine [Flexeril] 10 mg PO TID #12 tab 05/24/18 traMADol HCL [Ultram] 50 mg PO Q6HR PRN 3 Days #12 tab 05/24/18 Cyclobenzaprine [Flexeril] 10 mg PO TID PRN #15 tab 07/13/18 Ibuprofen [Motrin] 600 mg PO Q8HR PRN #30 tab 07/13/18 Sulfamethox-Tmp 800-160Mg [Bactrim 1 tab PO Q12HR #20 tab 08/27/18 DS 800-160 mg] Allergies Allergy/AdvReac Type Severity Reaction Status Date / Time Fish Containing Products Allergy Anaphylaxis Verified 07/13/18 13:58 [Fish] Review of Systems ROS Statement: Those systems with pertinent positive or pertinent negative responses have been documented in the HPI. ROS Other: All systems not noted in ROS Statement are negative. Past Medical History Additional Past Medical History / Comment(s): back pain History of Any Multi-Drug Resistant Organisms: None Reported Additional Past Surgical History / Comment(s): right shoulder surgery Past Psychological History: No Psychological Hx Reported Smoking Status: Current every day smoker Past Alcohol Use History: Occasional Past Drug Use History: Marijuana General Exam - General Exam Comments Initial Comments: General: The patient is awake and alert, in no distress, and does not appear acutely ill. Ears, nose, mouth and throat: There are moist mucous membranes and no oral lesions. Neck: The neck is supple, there is no tenderness or JVD. Cardiovascular: There is a regular rate and rhythm. No murmur, rub or gallop is appreciated. Respiratory: Lungs are clear to auscultation, respirations are non-labored, breath sounds are equal. No wheezes, stridor, rales, or rhonchi. Musculoskeletal: Normal ROM, no tenderness. Neurological: A&O x 3. CN II-XII intact, There are no obvious motor or sensory deficits. Coordination appears grossly intact. Speech is normal. Skin: Patient does have abscess located just underneath the jaw line on the right side. Patient is approximately 1.5 cm across. There is some small drainage coming centrally. Abscess is firm on palpation. Psychiatric: Cooperative, appropriate mood & affect, normal judgment. Limitations: no limitations Course Vital Signs 08/27/18 06:46 Temperature 98.8 F Pulse Rate 93 Respiratory 18 Rate Blood Pressure 109/75 O2 Sat by Pulse 98 Oximetry Procedures - Procedures Initial comment: Procedure: Incision and drainage The skin overlying the abscess was prepped with ChloraPrep and anesthetized with 1% lidocaine without epinephrine. A #11 scalpel was then used to incise the abscess. Some purulent material was then extracted from the lesion. Gauze dressing placed on top, The patient tolerated the procedure well. Medical Decision Making - Medical Decision Making Patient's abscess drained here in emergency room. But her mother drainage removed. Patient tolerated procedure well. He'll be given a prescription for Bactrim. He is unaware of the antibiotic that he has at home advised that if this is same antibiotic to continue and continue with warm compresses. Disposition Clinical Impression: Facial abscess Disposition: HOME SELF-CARE Condition: Good Instructions: Abscess (ED) Additional Instructions: Please continue warm compresses as discussed. Please use antibiotic as prescribed. Please follow-up with family doctor next 2 days or return if symptoms increase or worsen. Prescriptions: Sulfamethox-Tmp 800-160Mg [Bactrim DS 800-160 mg] 1 tab PO Q12HR #20 tab Is patient prescribed a controlled substance at d/c from ED?: No Referrals: None,Stated [Primary Care Provider] - 1-2 days Time of Disposition: 07:33
== END 2018-08-27 07:40 | disposition home or self-care (01) ==
LOC: EC 06:45
DX: L02.01 Cutaneous abscess of face (principal); F17.200 Nicotine dependence, unspecified, uncomplicated; Z91.013 Allergy to seafood
CPT/HCPCS: 10060; 99282

== ENCOUNTER 2019-06-29 13:27 | Emergency (ER) | payer OTHER ==
[2019-06-29 13:56] VITALS: BP 108/66; PULSE 69; RESP 16; TEMP 97.9
[2019-06-29] MEDS ORDERED: ITRACONAZOLE 100 MG CAP PO STA (14:26)
--- NOTE | 2019-06-29 14:34 | XR ---
EXAMINATION TYPE: XR finger RT DATE OF EXAM: 06/29/2019 COMPARISON: NONE HISTORY: Possible foreign body TECHNIQUE: 3 views FINDINGS: I see no fracture nor dislocation. Joint spaces are normal. There are no pathologic calcifi cations. There is no sign of a foreign body. IMPRESSION: Negative right index finger exam.
[2019-06-29] MEDS: CEPHALEXIN 500 MG CAP PO STA ×2 (14:40→15:30)
[2019-06-29] MEDS: CEPHALEXIN 500MG STARTER PACK 4 CAP BTL PO STA ×2 (14:41→15:30)
--- NOTE | 2019-06-29 15:10 | ED ---
General Adult HPI - General Chief complaint: Skin/Abscess/Foreign Body Stated complaint: FB finger Time Seen by Provider: 06/29/19 14:07 Source: patient, RN notes reviewed, old records reviewed Mode of arrival: ambulatory Limitations: no limitations - History of Present Illness Initial comments: 58-year-old male patient with no pertinent past history presents to ED chief complaint of potential cherrie thorn in pad of first digit of right hand. Patient reports this occurred approximately 10 days ago. Patient reports that he feels that he has splinted that he has been unable to remove. Patient has some localized pain. Patient denies any other symptoms. Denies any other symptoms of infection. Denies other complaints. Systemic: Pt denies fatigue, fever/chills, rash. Pt denies weakness, night sweats, weight loss. Neuro: Pt denies headache, visual disturbances, syncope or pre-syncope. HEENT: Pt denies ocular discharge or irritation, otalgia, rhinorrhea, pharyngitis or notable lymphadenopathy. Cardiopulmonary: Pt denies chest pain, SOB, heart palpitations, dyspnea on exertion. Abdominal/GI: Pt denies abdominal pain, n/v/d. : Pt denies dysuria, burning w/ urination, frequency/urgency. Denies new onset urinary or bowel incontinence. MSK: Pt denies myalgia, loss of strength or function in extremities. Neuro: Pt denies new onset weakness, paresthesias. - Related Data Home Medications Medication Instructions Recorded Confirmed Albuterol Inhaler [Ventolin Hfa 1 - 2 puff INHALATION BID 02/25/19 02/25/19 Inhaler] Cephalexin [Keflex] 500 mg PO Q6HR 02/25/19 02/25/19 Fluticasone/Salmeterol 1 puff INHALATION BID 02/25/19 02/25/19 [Fluticasone-Salmeterol 113-14] Previous Rx's Medication Instructions Recorded Cephalexin [Keflex] 500 mg PO Q6HR 10 Days #40 cap 06/29/19 Itraconazole [Onmel] 200 mg PO Q24HR 14 Days #14 tablet 06/29/19 Allergies Allergy/AdvReac Type Severity Reaction Status Date / Time Fish Containing Products Allergy Anaphylaxis Verified 06/29/19 13:57 [Fish] Review of Systems ROS Statement: Those systems with pertinent positive or pertinent negative responses have been documented in the HPI. ROS Other: All systems not noted in ROS Statement are negative. Past Medical History Past Medical History: No Reported History Additional Past Medical History / Comment(s): chest congestion,hemorrhoids,states "has traces of bleeding with wiping and abd pain",back pain History of Any Multi-Drug Resistant Organisms: None Reported Past Surgical History: Orthopedic Surgery Additional Past Surgical History / Comment(s): right shoulder surgery,I&D x3 3rd digit rt hand Past Anesthesia/Blood Transfusion Reactions: No Reported Reaction Past Psychological History: No Psychological Hx Reported Smoking Status: Current every day smoker Past Alcohol Use History: None Reported Past Drug Use History: Marijuana - Past Family History Father Family Medical History: Cancer Additional Family Medical History / Comment(s): colon General Exam - General Exam Comments Initial Comments: Constitutional: NAD, AOX3, Pt has pleasant affect. HEENT: NC/AT, trachea midline, neck supple, no lymphadenopathy. Posterior pharynx non erythematous, without exudates. External ears appear normal, without discharge. Mucous membranes moist. Eyes PERRLA, EOM intact. There is no scleral icterus. No pallor noted. Cardiopulmonary: RRR, no murmurs, rubs or gallops, no JVD noted. Lungs CTAB in anterior and posterior cardenas. No peripheral edema. Abdominal exam: Abdomen soft and non-distended. Abdomen non-tender to palpation in all 4 quadrants. Bowel sounds active in LLQ. No hepatosplenomegaly. No ecchymosis Neuro: CN II-XII grossly intact. No nuchal rigidity. No raccon eyes, no kelley sign, no hemotympanum. No cervical spinal tenderness. MSK: Pad of first digit of right hand mildly tender to palpation. Flexion and extension of digit intact. Kanavel's sign negative. No erythema, no warmth. Capillary refill less than 2 seconds. No posterior calf tenderness bilaterally, homans sign negative bilaterally. Posterior tibialis and radial pulse +2 bilaterally. Sensation intact in upper and lower extremities. Full active ROM in upper and lower extremities, 5/5 stregnth. Limitations: no limitations Course Vital Signs 06/29/19 13:52 Temperature 97.9 F Pulse Rate 69 Respiratory 16 Rate Blood Pressure 108/66 O2 Sat by Pulse 99 Oximetry Medical Decision Making - Medical Decision Making 58-year-old male patient with no pertinent past history presents to ED chief complaint of potential cherrie thorn in pad of first digit of right hand. Patient reports this occurred approximately 10 days ago. Patient reports that he feels that he has splinted that he has been unable to remove. Patient has some localized pain. Patient denies any other symptoms. Denies any other symptoms of infection. Denies other complaints. Pt VSS, afebrile. Physical exam displayed: Pad of first digit of right hand mildly tender to palpation. Flexion and extension of digit intact. Kanavel's sign negative. No erythema, no warmth. Capillary refill less than 2 seconds. Plain film displayed no acute process. Patient denies any history of liver disease. Review of previous laboratory investigations today normal liver enzymes. Patient was recommended by primary investigations to be drawn. Declined. Patient will be started on itraconazole and Keflex. Patient will follow-up with hand surgeon primary care provider for continued evaluation. This was explained to patient that he return precautions discussed with patient in depth. Patient discharged itraconazole and Keflex. Case discussed in depth with Dr. Palma. Patient left emergency Department refusing antibiotics and antifungal medications. Patient did have one dose administered to him in emergency department. These were sent to the patient's pharmacy. Disposition Clinical Impression: Splinter in skin Disposition: Left Against Medical Advice Condition: Undetermined Instructions (If sedation given, give patient instructions): Soft Tissue Foreign Body (ED) Additional Instructions: Patient to adhere to previously discussed treatment plan and will take medication(s) as directed. Patient to follow up with PCP in 1-2 days. Patient to return to ED if symptoms do not improve. Take medication as directed. Follow up with primary care provider, (have liver enzymes monitored) and hand surgeon on Sunday. Please monitor for signs and symptoms of infection including: redness, warmth, drainage, discharge. Please return to ED if these signs or symptoms occur, new signs or symptoms develop or if condition worsens in anyway. Prescriptions: Cephalexin [Keflex] 500 mg PO Q6HR 10 Days #40 cap Itraconazole [Onmel] 200 mg PO Q24HR 14 Days #14 tablet Is patient prescribed a controlled substance at d/c from ED?: No Referrals: Reggie Randall MD [Primary Care Provider] - 1-2 days [facility],Maranda Murillo [NON-STAFF] - 1-2 days Jean Cherry DO [Medical Doctor] - 1-2 days
== END 2019-06-29 15:09 | disposition left against medical advice (07) ==
LOC: EC 13:27
DX: S60.351A Superficial foreign body of right thumb, initial encounter (principal); F17.200 Nicotine dependence, unspecified, uncomplicated; Z91.013 Allergy to seafood; Z98.890 Other specified postprocedural states; W45.8XXA Other foreign body or object entering through skin, initial encounter; Z53.20 Procedure and treatment not carried out because of patient's decision for unspecified reasons
CPT/HCPCS: 99284

== ENCOUNTER → 2022-03-02 | Outpatient (CLI) | payer OTHER ==
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
== END | disposition home or self-care (01) ==
LOC: RADMRIMAIN 11:59
PROVIDERS: ATTEND Physical Medicine & Rehabilitation
DX: M51.36 Other intervertebral disc degeneration, lumbar region (principal); M47.816 Spondylosis without myelopathy or radiculopathy, lumbar region; M99.73 Connective tissue and disc stenosis of intervertebral foramina of lumbar region
CPT/HCPCS: 72158; A9585

== ENCOUNTER → 2023-10-04 | Outpatient (CLI) | payer OTHER ==
--- NOTE | 2023-10-04 13:26 | P.PAINPG ---
PQRS Measure Charge Sheet Comment: HISTORY OF PRESENT ILLNESS: A 63 yr old male as a referral from Dr Jennings presents today w severe and chronic LBP x 2 yrs secondary to DDD, spondylosis and facet arthropathy without myelopathy for evaluation. Pt states pain level is provoked at 8/10 in intensity, constant, localized in the lower lumbar spine, predominantly axial, dull in character w shooting pain towards the BL hips. Pain is provoked by bending, walking, lifting. Pain is alleviated by medications (Percocet 7.5/325mg #90 w last fill Jun 2023, [facility]), [place], cannabis use, PT x 3-4 wks for the cervical spine, heat, repositioning and rest. Oswestry axial pain score at 24. PMH: OA PSH: R Shoulder Surgery, R hand I &D x3 SH: Daily tobacco use, No ETOH abuse, Cannabis use FH: Fa- Colon CA All: See list Meds: See list REVIEW OF ORGAN SYSTEMS: CONSTITUTIONAL: No fevers or chills. No recent weight loss. NEUROLOGICAL: + numbness and tingling along the distal extremities. No seizure disorders or headaches. MUSCULOSKELETAL: + pain PSYCHIATRIC: Denies current depression or suicidal thoughts. Physical Examinations : Constitutional : Cooperative , not in acute distress . Neurologic : Cranial nerve II to XII intact. No focal neurological deficits. Psychiatric : alert & oriented x 3. Matching mood & appropriate affect. Judgment & insight intact. Musculoskeletal : Cervical Spine Motor strength in the deltoid and biceps: Normal right side. Normal Left side Motor strength biceps and the wrist extensors: Normal right side . Normal left side Motor strength in the triceps muscle: Normal right side. Normal left side Deep tendon reflexes: Normal at the biceps. Normal at Brachioradialis. Normal at triceps Vertebral body tenderness to deep palpation over Cervical facet loading test: positive bilaterally Spurling test: positive bilaterally Neck distraction test: positive bilaterally Matt sign: positive bilaterally Lumbar spine Motor strength lower extremities ,thigh and legs 5/5 Right side , 5/5 Left side Deep tendon reflexes : Normal Knee Jerk. Normal Ankle Jerk Vertebral body tenderness over Cortez Test positive Lumbar facet Loading Test: positive Right / positive Left Range of motion of the lumbar spine Flexion 30 degrees, extension 10 degrees Straight Leg Raise test: Left/ Right positive at degree Aarti test: positive right / positive left. Severe tenderness over the Sacroiliac joint on the Right / Left sides Gaenslen test: positive bilaterally Seated flexion test: positive bilaterally. Sacral spine : Severe tenderness over the Sacroiliac joint: right side / left side Range of motion: Flexion of the lumbar spine <60 degrees Range of motion: Extension of the lumbar spine <20 degrees Gaenslen's Test positive Aarti test: positive right side / left side Thigh Thrust Test Sacral Thrust Test Imaging: X-rays cervical spine from 05/03/23 reviewed Assessment/ Plan : Cervical DDD Recommendation of lumbar x ray and PT x 6 wks M51.36. Risks, benefits discussed and patient verbalized understanding. Admits to anti- coagulant use or medical history of diabetes. Protocol for discontinuation/ continuation of medications calixto procedure discussed. All questions answered. I have spent greater than 30 minutes on patient care today. Dr Benton was available by phone for the evaluation of this patient. The time was used to rev iew the medical records including relevant urine studies and Prescription history (MAPs), review of the available imaging, evaluation and examination of the patient, coordination of care with the medical staff and if applicable referring physicians, as well as creation of the medical record PQRS Narrative: Smoking Status Current every day smoker Home Medications: Ambulatory Orders HYDROcodone/APAP 10-325MG [[place] 10-325] 1 tab PO TID PRN 02/24/22 Controlled Substance Measures - Controlled Substance Measures Is patient prescribed a controlled substance at discharge?: No
[2023-10-04 14:13] VITALS: BP 129/73; PULSE 85; RESP 16; TEMP 98.6
== END ==
LOC: PNWHC3 09:11
PROVIDERS: ATTEND Specialist
DX: M51.26 Other intervertebral disc displacement, lumbar region (principal); M50.30 Other cervical disc degeneration, unspecified cervical region; M47.816 Spondylosis without myelopathy or radiculopathy, lumbar region; M19.90 Unspecified osteoarthritis, unspecified site; F12.90 Cannabis use, unspecified, uncomplicated; F17.200 Nicotine dependence, unspecified, uncomplicated; Z91.013 Allergy to seafood
CPT/HCPCS: 99211

== ENCOUNTER → 2023-10-04 | Outpatient (CLI) | payer OTHER ==
--- NOTE | 2023-10-04 12:43 | XR ---
EXAMINATION TYPE: XR lumbar spine 2 or 3V DATE OF EXAM: 10/04/2023 10:08 AM CLINICAL INDICATION:Male, 63 years old with history of M51.36 lumbar pain; PHH COMPARISON: None TECHNIQUE: XR lumbar spine 2 or 3V - Frontal, lateral and coned in L5-S1 lateral views of the spine. FINDINGS: No evidence of any acute osseous pathology. No evidence of loss of vertebral body height i s seen. There is normal alignment of the lumbar vertebral bodies. Scattered disc space narrowing. Mul tilevel marginal osteophyte formation throughout the visualized spine. There is facet joint arthropat hy throughout the spine. Scattered at least mild neural foraminal stenosis worse at L5-S1 with mild t o moderate.. Atherosclerosis of the arterial vasculature. IMPRESSION: 1. No acute fracture. 2. Mild to moderate multilevel disc degeneration.
== END | disposition home or self-care (01) ==
LOC: RADXRMAIN 09:49
PROVIDERS: ATTEND Physician Assistant Medical
DX: M51.36 Other intervertebral disc degeneration, lumbar region (principal)
CPT/HCPCS: 72100

== ENCOUNTER → 2023-11-15 | Outpatient (CLI) | payer OTHER ==
[2023-11-15 09:52] VITALS: BP 138/76; PULSE 76; RESP 15; TEMP 98.7
--- NOTE | 2023-11-15 13:40 | P.PAINPG ---
PQRS Measure Charge Sheet Comment: HISTORY OF PRESENT ILLNESS: A 63 yr old male presents today w severe and chronic LBP x 2 yrs secondary to DDD, spondylosis and facet arthropathy without myelopathy for evaluation. Pt states pain level is provoked at 8/10 in intensity, constant, localized in the lower lumbar spine, predominantly axial, throbbing in character w shooting pain towards the BL buttocks and hips. Pain is provoked by bending, walking, lifting. Pain is alleviated by medications, topical, cannabis use, PT x 3-4 wks in 2022 (cervical) and x 2 wks (lumbar) which he is currently in, heat, repositioning and rest. Oswestry axial pain score at 24. Interventional procedures include Medications include Percocet 7.5/325m g #90, Ibu, [place], Cannabis use REVIEW OF ORGAN SYSTEMS: CONSTITUTIONAL: No fevers or chills. No recent weight loss. NEUROLOGICAL: + numbness and tingling along the distal extremities. No seizure disorders or headaches. MUSCULOSKELETAL: + pain PSYCHIATRIC: Denies current depression or suicidal thoughts. Physical Examinations : Constitutional : Cooperative , not in acute distress . Neurologic : Cranial nerve II to XII intact. No focal neurological deficits. Psychiatric : alert & oriented x 3. Matching mood & appropriate affect. Judgment & insight intact. Musculoskeletal : Cervical Spine Motor strength in the deltoid and biceps: Normal right side. Normal Left side Motor strength biceps and the wrist extensors: Normal right side . Normal left side Motor strength in the triceps muscle: Normal right side. Normal left side Deep tendon reflexes: Normal at the biceps. Normal at Brachioradialis. Normal at triceps Vertebral body tenderness to deep palpation over Cervical facet loading test: positive bilaterally Spurling test: positive bilaterally Neck distraction test: positive bilaterally Matt sign: positive bilaterally Lumbar spine Motor strength lower extremities ,thigh and legs 5/5 Right side , 5/5 Left side Deep tendon reflexes : Normal Knee Jerk. Normal Ankle Jerk Vertebral body tenderness over Cortez Test positive Lumbar facet Loading Test: positive Right / positive Left Range of motion of the lumbar spine Flexion 30 degrees, extension 10 degrees Straight Leg Raise test: Left/ Right positive at degree Aarti test: positive right / positive left. Severe tenderness over the Sacroiliac joint on the Right / Left sides Gaenslen test: positive bilaterally Seated flexion test: positive bilaterally. Sacral spine : Severe tenderness over the Sacroiliac joint: right side / left side Range of motion: Flexion of the lumbar spine <60 degrees Range of motion: Extension of the lumbar spine <20 degrees Gaenslen's Test positive BL Aarti test: positive right side / left side Thigh Thrust Test Sacral Thrust Test Imaging: X-rays cervical spine from 05/03/23 reviewed Lumbar x-ray from 10/04/23 reviewed MRI with/ without contrast of the lumbar spine from 03/22/22 reviewed Assessment/ Plan : Cervical DDD Recommendation of TENS unit use . Script provided. Continue PT and follow up w Neurologist for EMG. All questions answered. I have spent greater than 30 minutes on patient care today. Dr Benton was available by phone for the evaluation of this patient. The time was used to review the medical records including relevant urine studies and Prescription history (MAPs), review of the available imaging, evaluation and examination of the patient, coordination of care with the medical staff and if applicable referring physicians, as well as creation of the medical record PQRS Narrative: Smoking Status Current every day smoker Home Medications: Ambulatory Orders HYDROcodone/APAP 10-325MG [[place] 10-325] 1 tab PO TID PRN 02/24/22 Controlled Substance Measures - Controlled Substance Measures Is patient prescribed a controlled substance at discharge?: No
== END ==
LOC: PNWHC3 08:56
PROVIDERS: ATTEND Specialist
DX: M50.30 Other cervical disc degeneration, unspecified cervical region (principal); F17.200 Nicotine dependence, unspecified, uncomplicated; F12.90 Cannabis use, unspecified, uncomplicated; Z91.013 Allergy to seafood
CPT/HCPCS: 99211

== ENCOUNTER 2024-01-26 07:11 | Observation (INO) | payer OTHER ==
--- NOTE | 2024-01-26 07:38 | ED ---
General Adult HPI - General Chief complaint: Chest Pain Stated complaint: Chest Pains Time Seen by Provider: 01/26/24 07:19 Source: patient, RN notes reviewed Mode of arrival: ambulatory Limitations: no limitations - History of Present Illness Initial comments: Patient is a pleasant 63-year-old male present to the emergency department with concerns with chest discomfort. Onset of symptoms was around 5 AM. Discomfort is rated 8/10. Discomfort has been waxing and waning. Discomfort feels like tightness in the left chest. Patient has mild associated dyspnea. Patient did feel sweaty and nauseated earlier. No history of similar symptoms previously. - Related Data Home Medications Medication Instructions Recorded Confirmed HYDROcodone/APAP 10-325MG [[place] 1 tab PO TID PRN 02/24/22 10/04/23 10-325] Allergies Allergy/AdvReac Type Severity Reaction Status Date / Time Fish Containing Products Allergy Anaphylaxis Verified 01/26/24 07:14 [Fish] Review of Systems ROS Statement: Those systems with pertinent positive or pertinent negative responses have been documented in the HPI. ROS Other: All systems not noted in ROS Statement are negative. Constitutional: Denies: fever Eyes: Denies: eye pain ENT: Denies: ear pain Respiratory: Reports: as per HPI Cardiovascular: Reports: as per HPI, chest pain Endocrine: Denies: fatigue Gastrointestinal: Reports: as per HPI Musculoskeletal: Denies: back pain Skin: Denies: rash Past Medical History Past Medical History: No Reported History Additional Past Medical History / Comment(s): having abdominal pain, back pain hx hemorrhoids,states "has traces of bleeding with wiping and abd pain" History of Any Multi-Drug Resistant Organisms: None Reported Past Surgical History: Orthopedic Surgery Additional Past Surgical History / Comment(s): right shoulder surgery, I&D x3 3rd digit rt hand, Past Anesthesia/Blood Transfusion Reactions: No Reported Reaction Past Psychological History: No Psychological Hx Reported Smoking Status: Current every day smoker Past Alcohol Use History: Occasional Past Drug Use History: Marijuana - Past Family History Father Family Medical History: Cancer Additional Family Medical History / Comment(s): colon General Exam Limitations: no limitations General appearance: alert, in no apparent distress Head exam: Present: normocephalic Eye exam: Present: normal appearance Neck exam: Present: normal inspection Respiratory exam: Present: normal lung sounds bilaterally, chest wall tenderness (Mild left chest wall) Cardiovascular Exam: Present: regular rate, normal rhythm Expanded Peripheral pulses: 2+: Radial (R), Radial (L), Posterior Tibialis (R), Posterior Tibialis (L) GI/Abdominal exam: Present: soft. Absent: tenderness Extremities exam: Present: normal inspection. 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 sent in by a medical professional or institution (MARGAUX Shaffer, RN NEW GRADUATE, urgent care, hospital, or penitentiary...) When possible be specific @ -No Did you speak to anyone other than the patient for history (EMS, parent, family, police, friend...)? What history was obtained from this source @ -No Did you review nursing and triage notes (agree or disagree)? Why? @ -I reviewed and agree with nursing and triage notes Were old charts reviewed (outside hosp., previous admission, EMS record, old EKG, old radiological studies, urgent care reports/EKG's, penitentiary records)? Report findings @ -No old charts were reviewed Differential Diagnosis (chest pain, altered mental status, abdominal pain women, abdominal pain men, vaginal bleeding, weakness, fever, dyspnea, syncope, headache, dizziness, GI bleed, back pain, seizure, CVA, palpatations, mental health, musculoskeletal)? @ -Differential Chest Pain: Stable Angina, Unstable Angina, STEMI, NSTEMI Aortic Dissection, Pneumothorax, Musculoskeletal, Esophageal Spasm GERD, Cholecystitis, Pancreatitis, Zoster, this is not meant to be an all-inclusive list. EKG interpreted by me (3pts min.). @ -As above X-rays interpreted by me (1pt min.). @ -Chest x-ray shows possible atelectasis right lower lobe CT interpreted by me (1pt min.). @ -None done U/S interpreted by me (1pt. min.). @ -None done What testing was considered but not performed or refused? (CT, X-rays, U/S, labs)? Why? @ -None What meds were considered but not given or refused? Why? @ -None Did you discuss the management of the patient with other professionals (professionals i.e. , PA, RN NEW GRADUATE, lab, RT, psych nurse, social media sr strategy manager, cad intern, teacher, combat systems officer, special education case manager)? Give summary @ -Case discussed with Dr. Junior who will admit covering hospital call Was smoking cessation discussed for >3mins.? @ -No Was critical care preformed (if so, how long)? @ -No Were there social determinants of health that impacted care today? How? (Homelessness, low income, unemployed, alcoholism, drug addiction, transportation, low edu. Level, literacy, decrease access to med. care, halfway, rehab)? @ -No Was there de-escalation of care discussed even if they declined (Discuss DNR or withdrawal of care, Hospice)? DNR status @ -No What co-morbidities impacted this encounter? (DM, HTN, Smoking, COPD, CAD, Cancer, CVA, ARF, Chemo, Hep., AIDS, mental health diagnosis, sleep apnea, morbid obesity)? @ -None Was patient admitted / discharged? Hospital course, mention meds given and route, prescriptions, significant lab abnormalities, going to OR and other pertinent info. @ -Patient reevaluated and resting comfortably in bed. Patient does not feel nitroglycerin helped him much. Patient is updated on results and plan. Patient will be admitted with cardiac consult. [place] orders written. Undiagnosed new problem with uncertain prognosis? @ -No Drug Therapy requiring intensive monitoring for toxicity (Heparin, Nitro, Insulin, Cardizem)? @ -No Were any procedures done? @ -No Diagnosis/symptom? @ -Chest pain Acute, or Chronic, or Acute on Chronic? @ -Acute Uncomplicated (without systemic symptoms) or Complicated (systemic symptoms)? @ -Default Side effects of treatment? @ -No Exacerbation, Progression, or Severe Exacerbation? @ -No Poses a threat to life or bodily function? How? (Chest pain, [place], [place], pneumonia, PE, COPD, DKA, ARF, appy, cholecystitis, CVA, Diverticulitis, Homicidal, Suicidal, threat to staff... and all critical care pts) @ -Potential cardiac threat - Lab Data Result diagrams: 01/26/24 07:36 01/26/24 07:36 Lab Results 01/26/24 01/26/24 01/26/24 Range/Units 07:36 07:36 07:36 WBC 6.7 (3.8-10.6) k/uL RBC 4.61 (4.30-5.90) m/uL Hgb 13.7 (13.0-17.5) gm/dL Hct 43.9 (39.0-53.0) % MCV 95.2 (80.0-100.0) fL MCH 29.8 (25.0-35.0) pg MCHC 31.2 (31.0-37.0) g/dL RDW 12.6 (11.5-15.5) % Plt Count 150 (150-450) k/uL MPV 9.6 Neutrophils % 41 % Lymphocytes % 46 % Monocytes % 7 % Eosinophils % 4 % Basophils % 1 % Neutrophils # 2.7 (1.3-7.7) k/uL Lymphocytes # 3.1 (1.0-4.8) k/uL Monocytes # 0.4 (0-1.0) k/uL Eosinophils # 0.2 (0-0.7) k/uL Basophils # 0.0 (0-0.2) k/uL PT 10.4 (10.0-12.5) sec INR 0.9 (<1.2) APTT 24.5 (22.0-30.0) sec D-Dimer 0.20 (<0.60) mg/L FEU Sodium 142 (137-145) mmol/L Potassium 4.0 (3.5-5.1) mmol/L Chloride 110 H (98-107) mmol/L Carbon Dioxide 26 (22-30) mmol/L Anion Gap 6 mmol/L BUN 16 (9-20) mg/dL Creatinine 0.96 (0.66-1.25) mg/dL Est GFR (CKD-EPI)AfAm >90 (>60 ml/min/1.73 sqM) Est GFR (CKD-EPI)NonAf 84 (>60 ml/min/1.73 sqM) Glucose 79 (74-99) mg/dL Calcium 8.9 (8.4-10.2) mg/dL Magnesium 1.9 (1.6-2.3) mg/dL Total Bilirubin 0.4 (0.2-1.3) mg/dL AST 22 (17-59) U/L ALT 13 (4-49) U/L Alkaline Phosphatase 77 (38-126) U/L Troponin I (0.000-0.034) ng/mL Total Protein 6.2 L (6.3-8.2) g/dL Albumin 3.5 (3.5-5.0) g/dL Lipase 200 (23-300) U/L 01/26/24 Range/Units 07:36 WBC (3.8-10.6) k/uL RBC (4.30-5.90) m/uL Hgb (13.0-17.5) gm/dL Hct (39.0-53.0) % MCV (80.0-100.0) fL MCH (25.0-35.0) pg MCHC (31.0-37.0) g/dL RDW (11.5-15.5) % Plt Count (150-450) k/uL MPV Neutrophils % % Lymphocytes % % Monocytes % % Eosinophils % % Basophils % % Neutrophils # (1.3-7.7) k/uL Lymphocytes # (1.0-4.8) k/uL Monocytes # (0-1.0) k/uL Eosinophils # (0-0.7) k/uL Basophils # (0-0.2) k/uL PT (10.0-12.5) sec INR (<1.2) APTT (22.0-30.0) sec D-Dimer (<0.60) mg/L FEU Sodium (137-145) mmol/L Potassium (3.5-5.1) mmol/L Chloride (98-107) mmol/L Carbon Dioxide (22-30) mmol/L Anion Gap mmol/L BUN (9-20) mg/dL Creatinine (0.66-1.25) mg/dL Est GFR (CKD-EPI)AfAm (>60 ml/min/1.73 sqM) Est GFR (CKD-EPI)NonAf (>60 ml/min/1.73 sqM) Glucose (74-99) mg/dL Calcium (8.4-10.2) mg/dL Magnesium (1.6-2.3) mg/dL Total Bilirubin (0.2-1.3) mg/dL AST (17-59) U/L ALT (4-49) U/L Alkaline Phosphatase (38-126) U/L Troponin I <0.012 (0.000-0.034) ng/mL Total Protein (6.3-8.2) g/dL Albumin (3.5-5.0) g/dL Lipase (23-300) U/L Disposition Clinical Impression: Chest pain Disposition: ADMITTED IP TO THIS HOSP Is patient prescribed a controlled substance at d/c from ED?: No Referrals: None,Stated [Primary Care Provider] - 1-2 days Time of Disposition: 08:46
[2024-01-26] MEDS: ASPIRIN 81 MG PO STA (07:39)
[2024-01-26] MEDS: NITROGLYCERIN SL TABS 0.4 MG TAB SUBLINGUAL STA ×3 (07:41→08:04)
--- NOTE | 2024-01-26 07:55 | XR ---
EXAMINATION TYPE: XR chest 2V DATE OF EXAM: 01/26/2024 COMPARISON: 05/24/2018 HISTORY: 63-year-old male with left-sided chest pain TECHNIQUE: PA and lateral views FINDINGS: The cardiomediastinal silhouette, aorta, and pulmonary vasculature are within normal limits. Similar hyperinflation and mild interstitial prominence. There is a new patchy right basilar density that has developed. No pleural effusion. IMPRESSION: COPD with new patchy right basilar atelectasis versus early infiltrate. Correlate with symptoms.
[2024-01-26 08:01] LABS: Basophils % (A) 1 %; Eosinophils # (A) 0.2 k/uL (0-0.7); Eosinophils % (A) 4 %; HCT 43.9 % (39.0-53.0); HGB 13.7 gm/dL (13.0-17.5); Lymphocytes # (A) 3.1 k/uL (1.0-4.8); Lymphocytes % (A) 46 %; MCH 29.8 pg (25.0-35.0); MCHC 31.2 g/dL (31.0-37.0); MCV 95.2 fL (80.0-100.0); Mean Platelet Volume 9.6; Monocytes # (A) 0.4 k/uL (0-1.0); Monocytes % (A) 7 %; Neutrophils # (A) 2.7 k/uL (1.3-7.7); Neutrophils % (A) 41 %; Platelet Count 150 k/uL (150-450); RBC 4.61 m/uL (4.30-5.90); RDW 12.6 % (11.5-15.5); WBC 6.7 k/uL (3.8-10.6)
[2024-01-26 08:23] LABS: ALT 13 U/L (4-49); AST 22 U/L (17-59); African American GFR (CKD) >90 (>60 ml/min/1.73 sqM); Albumin 3.5 g/dL (3.5-5.0); Alkaline Phosphatase 77 U/L (38-126); Anion Gap 6 mmol/L; Blood Urea Nitrogen 16 mg/dL (9-20); Calcium 8.9 mg/dL (8.4-10.2); Carbon Dioxide 26 mmol/L (22-30); Chloride 110 mmol/L (98-107); Glucose 79 mg/dL (74-99); Lipase 200 U/L (23-300); Magnesium 1.9 mg/dL (1.6-2.3); Non-African American GFR(CKD) 84 (>60 ml/min/1.73 sqM); Sodium 142 mmol/L (137-145); Total Bilirubin 0.4 mg/dL (0.2-1.3); Total Protein 6.2 g/dL (6.3-8.2)
[2024-01-26 08:37] LABS: INR 0.9 (<1.2); Partial Thromboplastin Time 24.5 sec (22.0-30.0); Prothrombin Time 10.4 sec (10.0-12.5)
[2024-01-26] MEDS ORDERED: HYDROcodone/APAP 10-325MG 1 EACH TAB PO PRN (08:45)
[2024-01-26] MEDS ORDERED: NITROGLYCERIN SL TABS 0.4 MG TAB SUBLINGUAL PRN (08:47)
[2024-01-26] MEDS: MORPHINE SULFATE 4 MG/ML SYRINGE IVP STA (09:22)
[2024-01-26 11:07] VITALS: TEMP 98
[2024-01-26 11:46] VITALS: RESP 18
[2024-01-26] MEDS ORDERED: NITROGLYCERIN OINT 1 INCH/GM PACKET TOPICAL SCH (12:00)
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
[2024-01-26] MEDS: NICOTINE 21MG/24HR PATCH TRANSDERM SCH (12:03)
--- NOTE | 2024-01-26 12:45 | P.HPIM ---
History of Present Illness H&P Date: 01/26/24 History of Presenting Illness: Patient is a 63-year-old male with history of nicotine dependence and daily marijuana use. He presented to the emergency department with a chief complaint of chest pain. Patient reports pain to midsternal and left anterior chest waking him up this morning around 5 AM. Patient reports helping his friend move yesterday so he initially thought this pain was a pulled muscle. Patient states this pain waxed and waned and was described as a tightness. Patient reports he then noticed some shortness of breath so he came to the hospital for evaluation. Patient denies any fevers, chills, dizziness, lightheadedness, diaphoresis, palpitations, cough or congestion, or experiencing any numbness/tingling/weakness/swelling in his extremities. He reports following with a PCP but has not seen in a couple years and denies following with a combiner operator. Patient denies having cardiac history or family history of cardiac disease. Upon arrival to the emergency department, patient underwent evaluation. Vital signs upon arrival show blood pressure 129/75, heart rate 84, respiratory rate 22, temp 97.7 F, and SpO2 of 100% on room air. EKG completed showing normal sinus rhythm at 75 bpm with occasional PAC and no noted T wave or ST abnormalities showing no signs of acute ischemia upon personal review and interpretation. Chest x-ray completed showing COPD with new patchy right basilar atelectasis versus early infiltrate. Labs completed and reviewed. CBC unremarkable. Coagulation profile normal findings with negative D-dimer of 0.20. BMP showing mild hyperchloremia with chloride of 110. Liver profile unremarkable. Magnesium normal findings at 1.9. Troponin negative at less than 0.012. Lipase 200. Patient admitted under services with consultation to cardiology. Review of systems: Pertinent positives and negatives as discussed in HPI, a complete review of systems was performed and all other systems are negative. Physical exam: Vital signs reviewed and stable. General: Nontoxic, no distress and appears stated age. Thin build. Derm: Skin warm and dry, normal coloration for ethnicity. Head: Atraumatic, normocephalic and symmetric. Eyes: EOMs intact, no lid lag, and anicteric sclera Mouth: no lip lesions, mucus membranes moist Cardiovascular: regular rate and rhythm with normal S1S2, no murmur, positive posterior tibial pulses bilaterally, and cap refill < 2 seconds. Lungs: Respirations even, regular, and unlabored on room air. Lungs CTA bilaterally, no rhonchi, no rales, no wheezing, and no accessory muscle usage. Abdominal: soft, nontender to palpation, no guarding, no appreciable organomegaly Ext: ROM intact. No gross muscle atrophy, no edema, no contractures Neuro: Speech clear, face symmetrical and CN II-XII grossly intact with no noted focal neuro deficits Psych: Alert and oriented to person, place, time, and situation. Appropriate and pleasant affect. Assessment and Plan of Care: Chest pain, rule out acute coronary event Nicotine dependence Cannabinoid use disorder -Cardiology consulted, appreciate recommendations -Telemetry monitoring -Trend troponins -Cardiac diet, NPO at midnight -Aspirin 81 mg daily, atorvastatin 40 mg daily, and as needed nitroglycerin sublingual 0.4 mg tablets. -Lipid profile with a.m. labs. -Echocardiogram -Recommend smoking cessation. Continue with nicotine patch 21 mg daily. Data reviewed: As stated above in HPI The patient is admitted with an anticipated less than 2 midnight stay for evaluation of chest pain CODE STATUS: Full code DVT prophylaxis: Heparin Anticipated discharge date: 24 to [address]: Home Patient was seen independently by Nurse Practitioner. This document was prepared using Welcome Real-time dictation software. Please allow for errors in motor coach chauffeur while rare they do occur. .Jair Delgadillo NP rendered care for this patient independently, reviewed the findings and plan as documented in the note above. I did not physically speak with or examine the patient on this date. Past Medical History Past Medical History: No Reported History Additional Past Medical History / Comment(s): having abdominal pain, back pain hx hemorrhoids,states "has traces of bleeding with wiping and abd pain" History of Any Multi-Drug Resistant Organisms: None Reported Past Surgical History: Orthopedic Surgery Additional Past Surgical History / Comment(s): right shoulder surgery, I&D x3 3rd digit rt hand, Past Anesthesia/Blood Transfusion Reactions: No Reported Reaction Past Psychological History: No Psychological Hx Reported Smoking Status: Current every day smoker Past Alcohol Use History: Occasional Past Drug Use History: Marijuana - Past Family History Father Family Medical History: Cancer Additional Family Medical History / Comment(s): colon Medications and Allergies Home Medications Medication Instructions Recorded Confirmed Type No Known Home Medications 01/26/24 01/26/24 History Allergies Allergy/AdvReac Type Severity Reaction Status Date / Time Fish Containing Products Allergy Anaphylaxis Verified 01/26/24 09:06 [Fish] Physical Exam Vitals: Vital Signs Temp Pulse Pulse Resp BP Pulse Ox 01/26/24 07:19 67 01/26/24 07:12 97.7 F 84 22 129/75 100 Intake and Output 01/25/24 01/26/24 01/26/24 22:59 06:59 14:59 Other: Weight 58.967 kg Results CBC & Chem 7: 01/26/24 07:36 01/26/24 07:36 Labs: Abnormal Lab Results - Last 24 Hours (Table) 01/26/24 Range/Units 07:36 Chloride 110 H (98-107) mmol/L Total Protein 6.2 L (6.3-8.2) g/dL
[2024-01-26 13:06] VITALS: BP 107/58; PULSE 51
--- NOTE | 2024-01-26 18:14 | P.DS ---
Providers Date of admission: 01/26/24 08:47 Expected date of discharge: 01/26/24 Attending physician: Nash Garcia MD Consults: 01/26/24 08:47 Consult Physician Urgent Consulting Provider: Demetri Durbin Consult Reason/Comments: cp Do you want consulting provider notified?: Yes Primary care physician: Stated None Hospital Course: THIS IS NOT A DISCHARGE SUMMARY BUT A SUMMARY OF CARE PATIENT LEFT AGAINST MEDICAL ADVICE Diagnoses: Chest pain, rule out acute coronary event Nicotine dependence Cannabinoid use disorder Hospital course Patient is a 63-year-old male with history of nicotine dependence and daily marijuana use. He presented to the emergency department with a chief complaint of chest pain. Patient reports pain to midsternal and left anterior chest waking him up this morning around 5 AM. Patient reports helping his friend move yesterday so he initially thought this pain was a pulled muscle. Patient states this pain waxed and waned and was described as a tightness. Patient reports he then noticed some shortness of breath so he came to the hospital for evaluation. Patient denies any fevers, chills, dizziness, lightheadedness, diaphoresis, palpitations, cough or congestion, or experiencing any numbness/tingli ng/weakness/swelling in his extremities. He reports following with a PCP but has not seen in a couple years and denies following with a java oracle developer. Patient denies having cardiac history or family history of cardiac disease. Upon arrival to the emergency department, patient underwent evaluation. Vital signs upon arrival show blood pressure 129/75, heart rate 84, respiratory rate 22, temp 97.7 F, and SpO2 of 100% on room air. EKG completed showing normal sinus rhythm at 75 bpm with occasional PAC and no noted T wave or ST abnormalities showing no signs of acute ischemia upon personal review and interpretation. Chest x-ray completed showing COPD with new patchy right basilar atelectasis versus early infiltrate. Labs completed and reviewed. CBC unremarkable. Coagulation profile normal findings with negative D-dimer of 0.20. BMP showing mild hyperchloremia with chloride of 110. Liver profile unremarkable. Magnesium normal findings at 1.9. Troponin negative at less than 0.012. Lipase 200. Patient admitted under services with consultation to cardiology. Troponins were trended all negative at less than 0.012 x 3 draws. TSH was normal findings at at 0.645. Received notification from RN at 2:30 PM on 01/26/2024 that patient left the hospital AGAINST MEDICAL ADVICE Pt left hospital AGAINST MEDICAL ADVICE on 01/26/2024 at 2:09 PM. Patient was seen independently by Nurse Practitioner. This document was prepared using Pushfor dictation software. Please allow for errors in aquatics specialist while rare they do occur. . Jair Delgadillo SECURITY SYSTEMS INTEGRATOR rendered care for this patient independently, reviewed the findings and plan as documented in the note above. I did not physically speak with or examine the patient on this date. Patient Condition at Discharge: Undetermined Plan - Discharge Summary New Discharge Prescriptions: No Action No Known Home Medications Discharge Medication List No Known Home Medications 01/26/24 [History] Follow up Appointment(s)/Referral(s): None,Stated [Primary Care Provider] - 1-2 days Discharge Disposition: LEFT AGAINST MEDICAL ADVICE
[2024-01-26] MEDS ORDERED: ATORVASTATIN 40 MG TAB PO SCH (21:00)
[2024-01-27] MEDS ORDERED: ASPIRIN 81 MG PO SCH (09:00)
[2024-01-27] MEDS ORDERED: ASPIRIN 325 MG TAB PO SCH (09:00)
--- NOTE | 2024-01-27 09:40 | CA ---
Transthoracic Echo Report Name: Caesar Xiong Age: 63 Gender: M : 1960 Exam Date: 01/26/2024 12:14 Exam Location: [facility] Ht (in): 67 Wt (lb): 130 Ordering Physician: Kandis Mcduffie Attending/Referring Phys: [id number], Froy Filling Technician Margy Ku RDCS Procedure CPT: Indications: LV function, CP Cardiac Hx: Technical Quality: Good Contrast 1: Total Dose (mL): Contrast 2: Total Dose (mL): MEASUREMENTS (Male / Female) Normal Values 2D ECHO LV Diastolic Diameter PLAX 4.4 cm 4.2 - 5.9 / 3.9 - 5.3 cm LV Systolic Diameter PLAX 2.9 cm IVS Diastolic Thickness 0.6 cm 0.6 - 1.0 / 0.6 - 0.9 cm LVPW Diastolic Thickness 0.8 cm 0.6 - 1.0 / 0.6 - 0.9 cm LV Relative Wall Thickness 0.3 LVOT Diameter 2.0 cm LV Diastolic Volume MOD 4C 75.4 cm??? LV Systolic Volume MOD 4C 23.6 cm??? LV Ejection Fraction MOD 4C 68.8 % LV Cardiac Index MOD 4C 1307.0 cm???/min???m??? LV Diastolic Length 4C 7.7 cm LV Systolic Length 4C 5.3 cm DOPPLER AV Peak Velocity 100.3 cm/s AV Peak Gradient 4.0 mmHg AV Mean Velocity 64.7 cm/s AV Mean Gradient 1.9 mmHg AV Velocity Time Integral 20.9 cm LVOT Peak Velocity 77.8 cm/s LVOT Peak Gradient 2.4 mmHg LVOT Velocity Time Integral 17.8 cm LVOT Stroke Volume 58.5 cm??? LVOT Stroke Volume Index 34.7 ml/m??? LVOT Cardiac Index 1474.0 cm???/min???m??? AV Area Cont Eq vti 2.8 cm??? AV Area Cont Eq pk 2.5 cm??? MV Area PHT 5.1 cm??? Mitral E Point Velocity 52.7 cm/s Mitral A Point Velocity 53.6 cm/s Mitral E to A Ratio 1.0 MV Deceleration Time 148.2 ms TR Peak Velocity 208.9 cm/s TR Peak Gradient 17.5 mmHg Right Atrial Pressure 15.0 mmHg Pulmonary Artery Systolic Pressu 32.5 mmHg Right Ventricular Systolic Press 32.5 mmHg PV Peak Velocity 105.7 cm/s PV Peak Gradient 4.5 mmHg FINDINGS Left Ventricle Left ventricular ejection fraction is estimated at 60-65 %. Left ventricular cavity size normal. Left ventricular wall thickness normal. No obvious regional wall motion abnormalities. Right Ventricle Normal right ventricular size and function. Right ventricular systolic pressure within normal limits. Right Atrium Normal right atrial size. Left Atrium Normal left atrial size. Mitral Valve Structurally normal mitral valve. No mitral stenosis, regurgitation or prolapse. Aortic Valve Trileaflet aortic valve. No aortic valve stenosis or regurgitation. Tricuspid Valve Structurally normal tricuspid valve. No tricuspid stenosis. Mild tricuspid regurgitation. Pulmonic Valve Structurally normal pulmonic valve. No pulmonic stenosis. Trace pulmonic regurgitation. Pericardium No pericardial effusion. Aorta Normal size aortic root. Ascending aorta not well visualized. CONCLUSIONS Normal LV systolic function Mild tricuspid regurgitation Previewed by: Dr. Demetri Durbin MD (Electronically Signed) Final Date: 27 January 2024 09:40
== END 2024-01-26 14:21 | disposition left against medical advice (07) ==
LOC: EC 07:11 → 6NMEDSUR 08:47
PROVIDERS: ADMIT Family Medicine; ATTEND Family Medicine
DX: R07.89 Other chest pain (principal); J44.9 Chronic obstructive pulmonary disease, unspecified; E87.8 Other disorders of electrolyte and fluid balance, not elsewhere classified; R00.1 Bradycardia, unspecified; R06.00 Dyspnea, unspecified; R61 Generalized hyperhidrosis; G89.21 Chronic pain due to trauma; I95.9 Hypotension, unspecified; F12.10 Cannabis abuse, uncomplicated; F17.210 Nicotine dependence, cigarettes, uncomplicated; Z53.29 Procedure and treatment not carried out because of patient's decision for other reasons; Z91.018 Allergy to other foods
CPT/HCPCS: 96374; 99285; 36415; 93005; 93306; 85379; 80053; 84443; 83690; 83735; 84484; 85025; 85610; 85730; 71046; G0378; J2270

== ENCOUNTER → 2024-03-24 | Outpatient (CLI) | payer OTHER ==
--- NOTE | 2024-03-24 09:21 | CT ---
EXAMINATION TYPE: CT iac wo con CT DLP: 150 mGycm, Automated exposure control for dose reduction was used. 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 COMPARISON: None. TECHNIQUE: Multiple thin axial images were obtained through the temporal bones and internal auditory canals. Additional coronal reformatted images were obtained. No IV contrast was utilized. CT Contrast: mL of , none. FINDINGS: Right Temporal Bone: External Ear: The external auditory canal is unremarkable no evidence for skin thickening, The tympan ic membrane is present and unremarkable. Middle Ear: The ossicles demonstrate a normal appearance. Prussak's space is clear and the scutum i s intact. There is no evidence of osseous erosion and the tegmen tympani is intact. Inner Ear: Cochlea, vestibule and semi circular canals are unremarkable. No evidence of carotid aquilino l dehiscence. Two and a half turns of the cochlea are identified. The vestibular aqueduct is not enl arged. Mastoid Air Cells: The mastoid air cells are clear. The tegmen mastoideum is intact. The aditus ad an trum is clear. Internal Auditory Canal: The internal auditory canal is unremarkable. Left Temporal Bone: External Ear: The external auditory canal is unremarkable, The tympanic membrane is present and unrem arkable. Middle Ear: The ossicles demonstrate a normal appearance. Prussak's space is clear and the scutum i s intact. There is no evidence of osseous erosion and the tegmen tympani is intact. Inner Ear: Cochlea, vestibule and semi circular canals are unremarkable. No evidence of carotid aquilino l dehiscence. Two and a half turns of the cochlea are identified. The vestibular aqueduct is not enl arged. Mastoid Air Cells: The mastoid air cells are clear. The tegmen mastoideum is intact. The aditus ad an trum is clear. Internal Auditory Canal: The internal auditory canal is unremarkable. Other: Complete opacification of the left maxillary sinus with internal calcifications. The left oste olysis complex is opacified. IMPRESSION: No evidence for acute process involving the right temporal bone. The internal auditory canal does not demonstrate skin thickening to suggest otitis externa. The soft tissues around the ear are relativel y symmetric. No organizing fluid collection. Chronic left maxillary sinus mucosal thickening with calcifications an opacified left ostiomeatal com plex..
--- NOTE | 2024-03-24 09:28 | US ---
EXAMINATION TYPE: US Aorta Screening DATE OF EXAM: 03/24/2024 COMPARISON: NONE CLINICAL INDICATION: Male, 63 years old with history of [id number], Z122 SCREENING FOR NOOPLASM; nicotine dependence TECHNIQUE: Multiple sonographic images of the abdominal aorta are obtained. FINDINGS: EXAM MEASUREMENTS: Abdominal Aorta: Proximal: 2.7 x 2.7 cm Mid: 2.2 x 2.1 cm Distal: 1.9 x 1.9 cm Bifurcation: Right Iliac: 1.4 x 1.3 cm Left Iliac: 1.4 x 1.4 cm AIR [place] NOTES: Plaque seen throughout aorta. Possible ectasia seen in prox ao IMPRESSION: No evidence for aortic aneurysm. Mild ectasia up to 2.7 cm in the proximal portion which may be vielka l anatomy.
== END | disposition home or self-care (01) ==
LOC: RADUSWWP 08:09
PROVIDERS: ATTEND Family Medicine
DX: Z12.2 Encounter for screening for malignant neoplasm of respiratory organs (principal); R68.89 Other general symptoms and signs; M54.12 Radiculopathy, cervical region; M50.30 Other cervical disc degeneration, unspecified cervical region; J34.89 Other specified disorders of nose and nasal sinuses; F17.210 Nicotine dependence, cigarettes, uncomplicated
CPT/HCPCS: 70480; 76706

== ENCOUNTER → 2024-04-07 | Outpatient (CLI) | payer OTHER ==
--- NOTE | 2024-04-07 11:36 | CTL ---
EXAMINATION TYPE: CT Low Dose Lung DATE OF EXAM ORDERED: 04/07/2024 HISTORY: 63-year-old male current smoker with a 20+ pack year history. Lung cancer screening. Z12.2 SCREENING LUNG CA F17.[address] DLP: 53.[address] CTDI: 1.4 mGy Automated exposure control for dose reduction was used. SCREENING VISIT: Baseline COMPARISON: 04/21/2017 TECHNIQUE: Low dose computed tomography scan was performed through the chest at 1 mm thick sections a nd reconstructed images in multiple planes at 1 mm and [address] DIAGNOSTIC QUALITY: Satisfactory FINDINGS: Heart normal size without pericardial effusion. Mild LAD coronary artery calcifications are present. Aorta normal caliber with conventional vessel branching anatomy. No thoracic lymphadenopathy by CT size criteria. Limitation in assessment due to the paucity of intra thoracic fat and lack of contrast. Moderate paraseptal and centrilobular emphysema in the visualized upper lungs. Bullous change at the right apex measuring up to 3.5 cm. Biapical pleural-parenchymal scarring. No consolidation or pleural effusion. * 6 mm anterior right midlung pulmonary nodule, axial image 227 remains unchanged from 2017 compatib le with a benign etiology.. * 2 mm lateral right midlung pulmonary nodule, axial image 29 is unchanged. * 2 mm fissural pulmonary nodule right midlung, axial image 160 is unchanged. Tiny hiatal hernia. Limited assessment of the visualized upper abdomen. Bones: No osseous destructive process. IMPRESSION: 1. LungRADS 2, benign. A few pulmonary nodules measuring up to 6 mm remain stable back to 2017. 2. COPD with moderate emphysema. A right apical bulla measures 3.5 cm in size. Recommend smoking cess ation. CT LUNG RAD AND CT CHEST RECOMMENDATION: Lung-Rad 2 Benign Appearance or Behavior: Continue annual sc reening with LDCT in 12 months. S Modifier (other clinically significant findings): None
== END | disposition home or self-care (01) ==
LOC: RADCTMAIN 10:39
PROVIDERS: ATTEND Family Medicine
DX: Z12.2 Encounter for screening for malignant neoplasm of respiratory organs (principal); R91.8 Other nonspecific abnormal finding of lung field; F17.210 Nicotine dependence, cigarettes, uncomplicated; J44.9 Chronic obstructive pulmonary disease, unspecified; J43.9 Emphysema, unspecified
CPT/HCPCS: 71271

== ENCOUNTER → 2024-04-14 | Outpatient (CLI) | payer OTHER ==
--- NOTE | 2024-04-14 09:54 | MR ---
EXAMINATION TYPE: MR cervical spine wo/w con DATE OF EXAM: 04/14/2024 COMPARISON: None HISTORY: Neck pain into both arms TECHNIQUE: Multiplanar, multisequence images of the cervical spine were acquired without contrast and with 6 mL intravenous Gadavist gadolinium contrast. FINDINGS: Alignment: The cervical vertebral bodies have preserved heights. Alignment is within normal limits gi darius patient positioning. Bones: Type I Modic changes involving the inferior endplate of the C4 vertebral body and superior end plate of C5 vertebral body. There is corresponding enhancement identified at these levels. No other regions of abnormal enhancement. Multilevel degenerative disc disease is noted. Cord: The spinal cord is unremarkable with regards to their signal intensity and morphology. Discs: Multilevel disc desiccation is present. C2-C3: No significant spinal canal stenosis. No significant neural foraminal stenosis. C3-C4: Central disc protrusion with mild effacement of the anterior thecal sac. No significant neural foraminal stenosis. C4-C5: Central disc protrusion with mild effacement of the anterior thecal sac. No significant neur al foraminal stenosis. C5-C6: Broad based disc bulge without significant central canal stenosis. Uncovertebral joint hypertr ophy resulting in mild bilateral neural foraminal stenosis. C6-C7: No significant spinal canal stenosis. Uncovertebral joint hypertrophy resulting in mild bilat eral neural foraminal stenosis. C7-T1: No significant disc pathology. The spinal canal is patent. No neural foraminal stenosis. Other: None. IMPRESSION: Disc herniations at C3-C4 and C4-C5 with mild central canal stenosis. Mild bilateral neural foraminal stenosis at C4-C5 and C6-C7.
== END | disposition home or self-care (01) ==
LOC: RADMRIMAIN 05:40
PROVIDERS: ATTEND Family Medicine
DX: M54.12 Radiculopathy, cervical region (principal); M50.30 Other cervical disc degeneration, unspecified cervical region; R68.89 Other general symptoms and signs; M50.21 Other cervical disc displacement, high cervical region; M99.71 Connective tissue and disc stenosis of intervertebral foramina of cervical region
CPT/HCPCS: 72156; A9585

== ENCOUNTER 2024-12-27 19:05 | Emergency (ER) | payer MEDICARE, OTHER ==
[2024-12-27 19:16] VITALS: TEMP 97.5
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
[2024-12-27] MEDS: ONDANSETRON 4 MG/2 ML VIAL IVP STA (19:27)
[2024-12-27] MEDS: HYDROmorphone 1 MG/ML 1 ML SYRINGE IVP STA (19:28)
[2024-12-27] MEDS: SODIUM CHLORIDE 0.9% 1,000 ML IV STA (19:30)
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
--- NOTE | 2024-12-27 19:39 | XR ---
EXAMINATION TYPE: XR pelvis AP view DATE OF EXAM: 12/27/2024 7:31 PM INDICATION: Patient age:Male; 64 years old; Reason for study: Trauma; PHH. pain COMPARISON: None TECHNIQUE: The pelvis was examined in a single projection. FINDINGS: There is no evidence of fracture or dislocation. There is no soft tissue abnormality. No a bnormal calcifications are present. IMPRESSION: No acute osseous pathology. [facility], , 12/27/2024 7:37 PM
[2024-12-27 19:40] LABS: Basophils % (A) 0 %; Eosinophils # (A) 0.1 k/uL (0-0.7); Eosinophils % (A) 1 %; HCT 42.2 % (39.0-53.0); HGB 13.9 gm/dL (13.0-17.5); Lymphocytes # (A) 4.1 k/uL (1.0-4.8); Lymphocytes % (A) 45 %; MCH 30.1 pg (25.0-35.0); MCHC 32.9 g/dL (31.0-37.0); MCV 91.5 fL (80.0-100.0); Mean Platelet Volume 8.3; Monocytes # (A) 0.5 k/uL (0-1.0); Monocytes % (A) 5 %; Neutrophils # (A) 4.2 k/uL (1.3-7.7); Neutrophils % (A) 45 %; Platelet Count 194 k/uL (150-450); RBC 4.62 m/uL (4.30-5.90); RDW 13.3 % (11.5-15.5); WBC 9.2 k/uL (3.8-10.6)
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
[2024-12-27 20:07] LABS: ALT 11 U/L (4-49); AST 28 U/L (17-59); African American GFR (CKD) >90 (>60 ml/min/1.73 sqM); Albumin 4.1 g/dL (3.5-5.0); Alcohol 36 mg/dL; Alkaline Phosphatase 94 U/L (38-126); Anion Gap 10 mmol/L; Blood Urea Nitrogen 13 mg/dL (9-20); Calcium 9.2 mg/dL (8.4-10.2); Carbon Dioxide 19 mmol/L (22-30); Chloride 104 mmol/L (98-107); Glucose 90 mg/dL (74-99); Non-African American GFR(CKD) 80 (>60 ml/min/1.73 sqM); Partial Thromboplastin Time 22.9 sec (22.0-30.0); Prothrombin Time 10.7 sec (10.0-12.5); Sodium 133 mmol/L (137-145); Total Bilirubin 0.7 mg/dL (0.2-1.3); Total Protein 6.8 g/dL (6.3-8.2)
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
[2024-12-27] MEDS ORDERED: ACET/COD 300 MG/30 MG STARTER PACK 6 TAB BTL PO STA (21:03)
--- NOTE | 2024-12-27 21:21 | XR ---
EXAMINATION TYPE: XR knee complete LT DATE OF EXAM: 12/27/2024 9:15 PM INDICATION: Patient age:Male; 64 years old; Reason for study: pain; PHH. pain COMPARISON: None. TECHNIQUE: The Left knee(s) was examined in Frontal, lateral and oblique projections. FINDINGS: No evidence of any acute osseous pathology, soft tissue swelling, or joint effusion is no jeffery. 5.5 mm irregular radiopaque opacity identified only in lateral view overlying the posterior thig h soft tissues. IMPRESSION: 1. No acute osseous pathology. 2. Possible 5.5 mm irregular radiopaque opacity within the posterior thigh soft tissues. Only seen on lateral view. Correlate clinically. [facility], , 12/27/2024 9:18 PM
[2024-12-27] MEDS: KETOROLAC 15 MG/ML 1 ML VIAL IVP STA (21:23)
[2024-12-27 21:48] LABS: Cocaine Screen,Urine Not Detected (NotDetected); Phencyclidine Screen,Urine Not Detected (NotDetected); Urn Cannabinoid Scrn Detected (NotDetected)
[2024-12-27 21:49] LABS: Amphetamine Screen,Urine Not Detected (NotDetected); Barbiturate Screen,Urine Not Detected (NotDetected); Benzodiazepines Screen,Urine Not Detected (NotDetected); Methadone Screen, Urine Not Detected (NotDetected); Opiate Screen,Urine Detected (NotDetected); Oxycodone Screen, Urine Not Detected (NotDetected); Tricyclic Antidepressant,Urine Not Detected (NotDetected)
[2024-12-27 23:46] VITALS: BP 93/53; PULSE 82; RESP 18
== END 2024-12-27 22:25 | disposition other institution (70) ==
LOC: EC 19:05
DX: S01.111A Laceration without foreign body of right eyelid and periocular area, initial encounter (principal); F17.200 Nicotine dependence, unspecified, uncomplicated; Z91.013 Allergy to seafood; V86.55XA Driver of 3- or 4- wheeled all-terrain vehicle (ATV) injured in nontraffic accident, initial encounter; Y92.410 Unspecified street and highway as the place of occurrence of the external cause
CPT/HCPCS: 36415; 93005; 86900; 86901; 80053; 83605; 84484; 85025; 85610; 85730; 86850; 80306; 72170; 73562; 71045; 72125; 70486; 70450; 71260; 74177; 99285; 96374; 96375 ×2; 96361; G0480; J2405; J1171; J1885; Q9967; 80320

== ENCOUNTER → 2025-01-21 | Outpatient (CLI) | payer MEDICARE, OTHER ==
--- NOTE | 2025-01-21 11:30 | XR ---
EXAMINATION TYPE: XR shoulder complete LT DATE OF EXAM: 01/21/2025 11:26 AM INDICATION: Patient age:Male; 64 years old; Reason for study: V86.99XA, M25.512; pain COMPARISON: Chest radiograph 12/27/2024 TECHNIQUE: The left shoulder was examined in AP, internally rotated and scapular Y projections. . FINDINGS: No evidence of acute osseous pathology, joint dislocation, or soft tissue swelling. Mild AC joint art hropathy with undersurface spurring. Atherosclerotic calcification of the aortic arch. The remaining portions of the visualized chest are unremarkable. IMPRESSION: 1. No acute osseous pathology. 2. Mild AC joint arthropathy. [facility], , 01/21/2025 11:28 AM
== END | disposition home or self-care (01) ==
LOC: RADXRMAIN 11:06
PROVIDERS: ATTEND Registered Nurse
DX: M19.012 Primary osteoarthritis, left shoulder (principal); V86.99XA Unspecified occupant of other special all-terrain or other off-road motor vehicle injured in nontraffic accident, initial encounter